=== PATIENT | male | born 1980 | race Caucasian/White ===

== ENCOUNTER 2019-03-15 09:57 | Emergency (ER) | payer BC ==
[2019-03-15] MEDS ORDERED: Sodium Chloride 0.9% 10 ML Syringe FLUSH PRN (10:36)
[2019-03-15] MEDS ORDERED: Ondansetron 4 MG/2 ML SDV IVPUSH ONE (10:36)
[2019-03-15] MEDS ORDERED: Ketorolac 30 MG/ML SDV IVPUSH ONE (10:37)
[2019-03-15] MEDS ORDERED: HYDROmorphone 0.5 MG/0.5 ML Syringe IVPUSH ONE ×2 (10:37→13:28)
[2019-03-15] MEDS ORDERED: Sodium Chloride 0.9% 1,000 ML IV SCH (10:45)
--- NOTE | 2019-03-15 11:43 | CT ---
CT abdomen and pelvis Technique: Multiple axial sections were obtained from above the dome of the diaphragm inferiorly through the pubic symphysis. Intravenous and oral contrast not utilized. Study has been performed as a ureteral stone protocol. Comparison: Prior CT abdomen and pelvis exam of 05/17/18. Findings: Ureters show no dilatation. No abnormal calcifications are seen along the course of the ureters. Small nonobstructing stone is noted within the mid to upper right kidney measuring about 2 mm. Small 1 mm stone is noted within the lower right kidney. No other abnormal calcifications are seen within either kidney. Visualized lung bases show nothing acute. Diffuse fatty infiltration is seen within the liver. Surgical clips are noted from prior cholecystectomy. Spleen appears within normal limits. Adrenal glands show no nodule. Pancreas shows no discrete abnormality. Aorta shows no aneurysm. No retroperitoneal adenopathy or mesenteric abnormalities are seen. Appendix is felt to be visualized and is normal in size. No pelvic mass or adenopathy is seen. No free fluid or inflammatory change is seen. No bowel dilatation is seen. Bone window settings were reviewed which show degenerative disc space narrowing within the lower thoracic spine and upper lumbar spine. Impression: 1. No ureteral dilatation or ureteral stone is seen. Two small nonobstructing calculi are seen within the right kidney. 2. Fatty infiltration within the liver. 3. Nothing acute is appreciated on noncontrast CT study of the abdomen and pelvis. Diagnostic code #2
--- NOTE | 2019-03-15 13:33 | EDM.PDOC ---
ED HPI GENERAL MEDICAL PROBLEM - General Chief Complaint: Abdominal Pain Stated Complaint: BACK PAIN/LEG PAIN/SIDE PAIN Time Seen by Provider: 03/15/19 10:07 Source of Information: Reports: Patient History Limitations: Reports: No Limitations - History of Present Illness INITIAL COMMENTS - FREE TEXT/NARRATIVE: The patient presents with bilateral leg cramps for about a week and right flank and right abdominal pain. The flank and abdominal pain started today. He has some nausea but not vomiting. He has no history of kidney stones. He has no fever, chills or cough. He has no gallbladder. He has no dysuria or hematuria. Onset: Gradual Duration: Hour(s): Location: Reports: Abdomen, Back Quality: Reports: Sharp Severity: Severe Improves with: Reports: None Worsens with: Reports: None Associated Symptoms: Reports: Nausea/Vomiting. Denies: Chest Pain, Cough, Fever /Chills, Headaches, Shortness of Breath Right Abdominal Pain Score (Numeric/FACES): 8 - Related Data Allergies Allergy/AdvReac Type Severity Reaction Status Date / Time morphine Allergy Hives Verified 03/15/19 10:10 Home Meds: Home Meds Canagliflozin [Invokana] 100 mg PO DAILY 05/17/18 [History] Dulaglutide [Trulicity] 1 dose SQ WEEKLY 05/17/18 [History] Omeprazole 20 mg PO DAILY 05/17/18 [History] Testosterone [Axiron] 200 mg IM WEEKLY 05/17/18 [History] Cyclobenzaprine [Flexeril] 10 mg PO TID PRN #20 tab 03/15/19 [Rx] traMADol [Ultram] 50 - 100 mg PO Q6H PRN #20 tab 03/15/19 [Rx] Past Medical History Cardiovascular History: Reports: High Cholesterol Other Cardiovascular History: January 11, 2016 had tachycardia that caused scarring on the heart. Respiratory History: Reports: None Gastrointestinal History: Reports: Inflammatory Bowel Disease Neurological History: Reports: None Psychiatric History: Reports: None Endocrine/Metabolic History: Reports: Diabetes, Type II Hematologic History: Reports: None Immunologic History: Reports: None Oncologic (Cancer) History: Reports: Other (See Below) Other Oncologic History: testicular Dermatologic History: Reports: None - Infectious Disease History Infectious Disease History: Reports: None - Past Surgical History Head Surgeries/Procedures: Reports: None HEENT Surgical History: Reports: LASIK GI Surgical History: Reports: Cholecystectomy, Hernia, Inguinal Other Male Surgeries/Procedures: Removal of bilateral epididimis in 2001, 2004 due to testicular cancer. Musculoskeletal Surgical History: Reports: Arthroscopic Knee Social & Family History - Tobacco Use Smoking Status *Q: Never Smoker - Caffeine Use Caffeine Use: Reports: None - Recreational Drug Use Recreational Drug Use: No - Living Situation & Occupation Living situation: Reports: Occupation: Employed ED ROS GENERAL - Review of Systems Review Of Systems: See Below Constitutional: Reports: No Symptoms HEENT: Reports: No Symptoms Respiratory: Reports: No Symptoms Cardiovascular: Reports: No Symptoms Endocrine: Reports: No Symptoms GI/Abdominal: Reports: Abdominal Pain, Nausea. Denies: Diarrhea, Vomiting : Reports: Flank Pain (Right) Musculoskeletal: Reports: Other (Bilateral leg cramps) ED EXAM, GI/ABD - Physical Exam Exam: See Below Exam Limited By: No Limitations General Appearance: Alert, No Apparent Distress Ears: Normal External Exam Nose: Normal Inspection Head: Atraumatic, Normocephalic Neck: Normal Inspection Respiratory/Chest: No Respiratory Distress, Lungs Clear, Normal Breath Sounds Cardiovascular: Regular Rate, Rhythm, No Edema, No Murmur GI/Abdominal Exam: Soft, Non-Tender, No Organomegaly, No Mass Back Exam: CVA Tenderness (R) Extremities: Normal Inspection Neurological: Alert, Oriented, No Motor/Sensory Deficits Course - Vital Signs Last Recorded V/S: Last Vital Signs Temp 97.6 F 03/15/19 10:07 Pulse 83 03/15/19 10:07 Resp 16 03/15/19 10:07 BP 142/100 H 03/15/19 10:07 Pulse Ox 99 03/15/19 10:07 - Orders/Labs/Meds Orders: Active Orders 24 hr Category Date Time Status Peripheral IV Care [RC] . DIRECTED Care 03/15/19 10:36 Active ED Antiemetic Medication Reflex [OM.PC] Stat Oth 03/15/19 10:36 Ordered Peripheral IV Insertion Adult [OM.PC] Stat Oth 03/15/19 10:36 Ordered Labs: Laboratory Tests 03/15/19 03/15/19 03/15/19 Range/Units 10:50 10:50 11:18 WBC 7.16 (4.23-9.07) K/mm3 RBC 6.15 H (4.63-6.08) M/mm3 Hgb 17.1 (13.7-17.5) gm/L Hct 50.1 (40.1-51.0) % MCV 81.5 (79.0-92.2) fl MCH 27.8 (25.7-32.2) pg MCHC 34.1 (32.2-35.5) g/dl RDW Std Deviation 40.4 (35.1-43.9) fL Plt Count 213 D (163-337) K/mm3 MPV 10.5 (9.4-12.3) fl Neut % (Auto) 55.4 (34.0-67.9) % Lymph % (Auto) 31.6 (21.8-53.1) % [place] % (Auto) 11.2 (5.3-12.2) % Eos % (Auto) 0.8 (0.8-7.0) Baso % (Auto) 0.6 (0.1-1.2) % Neut # (Auto) 3.97 (1.78-5.38) K/mm3 Lymph # (Auto) 2.26 (1.32-3.57) K/mm3 [place] # (Auto) 0.80 (0.30-0.82) K/mm3 Eos # (Auto) 0.06 (0.04-0.54) K/mm3 Baso # (Auto) 0.04 (0.01-0.08) K/mm3 Manual Slide Review Abnormal smear Sodium 136 (136-145) mEq/L Potassium 3.7 (3.5-5.1) mEq/L Chloride 99 (98-107) mEq/L Carbon Dioxide 26 (21-32) mEq/L Anion Gap 14.7 (5-15) BUN 8 (7-18) mg/dL Creatinine 1.1 (0.7-1.3) mg/dL Est Cr Clr Drug Dosing 94.02 mL/min Estimated GFR (MDRD) > 60 (>60) mL/min BUN/Creatinine Ratio 7.3 L (14-18) Glucose 243 H (74-106) mg/dL Calcium 8.8 (8.5-10.1) mg/dL Total Bilirubin 0.6 (0.2-1.0) mg/dL AST 118 H (15-37) U/L ALT 201 H (16-63) U/L Alkaline Phosphatase 101 (46-116) U/L Total Protein 7.7 (6.4-8.2) g/dl Albumin 3.4 (3.4-5.0) g/dl Globulin 4.3 gm/dL Albumin/Globulin Ratio 0.8 L (1-2) Lipase 140 (73-393) U/L Urine Color Yellow (Yellow) Urine Appearance Clear (Clear) Urine pH 6.5 (5.0-8.0) Ur Specific [place] 1.010 (1.005-1.030) Urine Protein Negative (Negative) Urine Glucose (UA) 2+ H (Negative) Urine Ketones Negative (Negative) Urine Occult Blood Negative (Negative) Urine Nitrite Negative (Negative) Urine Bilirubin Negative (Negative) Urine Urobilinogen 0.2 (0.2-1.0) Ur Leukocyte Esterase Negative (Negative) Urine RBC Not seen (0-5) /hpf Urine WBC Not seen (0-5) /hpf Ur Squamous Epith Cells 0-5 (0-5) /hpf Urine Bacteria Not seen (FEW) /hpf Urine Mucus Not seen (FEW) /hpf Meds: Medications Discontinued Medications Generic Name Dose Route Start Last Admin Trade Name Freq PRN Reason Stop Dose Admin Hydromorphone HCl 0.5 mg 03/15/19 10:37 03/15/19 10:53 Dilaudid IVPUSH 03/15/19 10:38 0.5 mg ONETIME ONE Administration Hydromorphone HCl 0.5 mg 03/15/19 13:28 03/15/19 13:44 Dilaudid IVPUSH 03/15/19 13:29 0.5 mg ONETIME ONE Administration Sodium Chloride 1,000 mls @ 125 mls/hr 03/15/19 10:45 03/15/19 10:51 Normal Saline IV 125 mls/hr ASDIRECTED CHAYO Administration Ketorolac Tromethamine 30 mg 03/15/19 10:37 03/15/19 10:52 Toradol IVPUSH 03/15/19 10:38 30 mg ONETIME ONE Administration Ondansetron HCl 4 mg 03/15/19 10:36 03/15/19 10:51 Zofran IVPUSH 03/15/19 10:37 4 mg ONETIME ONE Administration Sodium Chloride 10 ml 03/15/19 10:36 03/15/19 10:52 Saline Flush FLUSH 10 ml ASDIRECTED PRN Administration Keep Vein Open - Re-Assessments/Exams Free Text/Narrative Re-Assessment/Exam: 03/15/19 19:49 I ordered an IV NS at 125mL/hr, zofran 4mg IV, toradol 30mg IV, dilaudid IV, labs, UA and a CT of your abdomen and pelvis without IV and oral contrast to look for a kidney stone. 03/15/19 19:50 His CBC looks good. His glucose was elevated at 243. He does have type II diabetes. His AST was elevated at 118. His ALT was elevated at 201. His lipase was normal. His UA shows no UTI or blood. His CT shows no ureteral dilatation or ureteral stone is seen. Two small nonobstructing calculi are seen within the right kidney. Fatty infiltration within the liver. Nothing acute is appreciated on noncontrast CT study of the abdomen and pelvis. At this time I am not sure what caused his pain and his muscle cramps. I will get him on a muscle relaxer and something for pain and have him follow up with his doctor. Departure - Departure Time of Disposition: 13:30 Disposition: Home, Self-Care 01 Condition: Good Clinical Impression: Right flank pain Abdominal pain Qualifiers: Abdominal location: right lower quadrant Qualified Code(s): R10.31 - Right lower quadrant pain - Discharge Information *PRESCRIPTION DRUG MONITORING PROGRAM REVIEWED*: No *COPY OF PRESCRIPTION DRUG MONITORING REPORT IN PATIENT ANNMARIE: No Prescriptions: Cyclobenzaprine [Flexeril] 10 mg PO TID PRN #20 tab PRN Reason: Pain traMADol [Ultram] 50 - 100 mg PO Q6H PRN #20 tab PRN Reason: Pain Instructions: Abdominal Pain, Adult, Flank Pain, Adult, [id number] Referrals: Trish Mota MD [Primary Care Provider] - 1 Week Forms: ED Department Discharge Additional Instructions: Drink plenty of fluids. Take the tramadol for pain and the flexeril for cramps. Do not drive while taking either medications. Follow up with your doctor in 1 week. - My Orders Last 24 Hours: My Active Orders 03/15/19 10:36 Peripheral IV Care [RC] . DIRECTED ED Antiemetic Medication Reflex [OM.PC] Stat Peripheral IV Insertion Adult [OM.PC] Stat - Assessment/Plan Last 24 Hours: My Active Orders 03/15/19 10:36 Peripheral IV Care [RC] . DIRECTED ED Antiemetic Medication Reflex [OM.PC] Stat Peripheral IV Insertion Adult [OM.PC] Stat
== END 2019-03-15 13:54 | disposition home or self-care (01) ==
LOC: JD.ED 09:57
DX: R10.31 Right lower quadrant pain (principal); E11.9 Type 2 diabetes mellitus without complications; Z88.5 Allergy status to narcotic agent; Z90.49 Acquired absence of other specified parts of digestive tract
CPT/HCPCS: 36415; 74176; 80053; 81001; 83690; 85025; 96361; 96374; 96375; 96376; 99284; J1170; J1885; J2405; J7040

== ENCOUNTER 2020-04-15 07:05 | Day surgery (SDC) | payer SELFPAY ==
--- NOTE | 2020-04-14 13:01 | PCM.PREANE ---
Preanesthetic Assessment - Anesthesia/Transfusion/Family Hx Anesthesia History: Prior Anesthesia Without Reaction Family History of Anesthesia Reaction: No Transfusion History: No Prior Transfusion(s) Intubation History: Unknown - Review of Systems General: No Symptoms Pulmonary: No Symptoms Cardiovascular: No Symptoms (History of HTN) Gastrointestinal: No Symptoms (controlled GERD), Abdominal Pain (Patient c/o of abdominal bloating/full.), Decreased Appetite, Diarrhea Neurological: No Symptoms Other: Reports: None (History of testicular cancer), Diabetes (AM Blood Sugar:259 @ 259), Liver Problems (Fatty liver disease in the past.) - Physical Assessment NPO Status Date: 04/14/20 NPO Status Time: 22:00 Vital Signs: HR:92 B/P:136/96 Sat:97% Temp:97.1 Resp:14 Height: 1.78 m Weight: 92 kg ASA Class: 2 Mental Status: Alert & Oriented x3 Airway Class: Mallampati = 2 Dentition: Reports: Normal Dentition, [place](s), Implants, Caries Thyro-Mental Finger Breadths: 3 Mouth Opening Finger Breadths: 3 ROM/Head Extension: Full Lungs: Clear to Auscultation, Normal Respiratory Effort Cardiovascular: Regular Rate, Regular Rhythm, No Murmurs - Lab Values: All labs reviewed and noted and within acceptable ranges to proceed with scheduled procedure. - Allergies Allergies/Adverse Reactions: Allergies Allergy/AdvReac Type Severity Reaction Status Date / Time dulaglutide [From Trulicity] Allergy Hives Verified 04/14/20 14:17 morphine Allergy Hives Verified 04/14/20 14:17 simvastatin Allergy Muscle Verified 04/14/20 14:17 Aches wheat Allergy Diarrhea Verified 04/14/20 14:17 - Anesthesia Plan Pre-Op Medication Ordered: None - Acknowledgements Anesthesia Type Planned: MAC Pt an Appropriate Candidate for the Planned Anesthesia: Yes Alternatives and Risks of Anesthesia Discussed w Pt/Guardian: Yes Pt/Guardian Understands and Agrees with Anesthesia Plan: Yes PreAnesthesia Questionnaire Cardiovascular History: Reports: High Cholesterol Other Cardiovascular History: January 11, 2016 had tachycardia that caused scarring on the heart. Respiratory History: Reports: None Gastrointestinal History: Reports: Inflammatory Bowel Disease Neurological History: Reports: None Psychiatric History: Reports: None Endocrine/Metabolic History: Reports: Diabetes, Type II Hematologic History: Reports: None Immunologic History: Reports: None Oncologic (Cancer) History: Reports: Other (See Below) Other Oncologic History: testicular Dermatologic History: Reports: None - Infectious Disease History Infectious Disease History: Reports: None - Past Surgical History Head Surgeries/Procedures: Reports: None HEENT Surgical History: Reports: LASIK GI Surgical History: Reports: Cholecystectomy, Hernia, Inguinal Other Male Surgeries/Procedures: Removal of bilateral epididimis in 2001, 2004 due to testicular cancer. Musculoskeletal Surgical History: Reports: Arthroscopic Knee - HOME MEDS Home Medications: Home Meds Omeprazole 20 mg PO DAILY 05/17/18 [History] SitaGLIPtin [Januvia] 100 mg PO BID 04/14/20 [History] Testosterone Cypionate [Depo-Testosterone] 1 dose IM Q7D 04/14/20 [History] - CURRENT (IN HOUSE) MEDS Current Meds: Current Medications Lactated Ringer's (Ringers, Lactated) 1,000 mls @ 125 mls/hr IV ASDIRECTED CHAYO Stop: 04/15/20 23:00 Lidocaine/Sodium Bicarbonate (Buffered Lidocaine 1% In Ns 8.4%) 0.25 ml IDERM ONETIME PRN PRN Reason: Prior to IV Start Stop: 04/15/20 18:00 Sodium Chloride (Saline Flush) 10 ml FLUSH ASDIRECTED PRN PRN Reason: Keep Vein Open Stop: 04/15/20 18:00
[~2020-04-15 07:05] MED LIST: Lactated Ringers 1,000 ML IV SCH; Lidocaine 1%/Sod Bicarbonate in NS 8.4% 1 ML Syringe IDERM PRN; Sodium Chloride 0.9% 10 ML Syringe FLUSH PRN
[2020-04-15] MEDS ORDERED: Propofol 200 MG/20 ML SDV ONE (07:11)
[2020-04-15] MEDS ORDERED: Lidocaine 1% 2 ML SDV ONE (07:11)
[2020-04-15] MEDS ORDERED: fentaNYL 100 MCG/2 ML SDV ONE (07:11)
[2020-04-15] MEDS ORDERED: Ondansetron 4 MG/2 ML SDV IVPUSH PRN ×2 (07:55→07:57)
--- NOTE | 2020-04-15 08:20 | PCM48HPAN ---
Post Anesthesia Note - EVALUATION WITHIN 48HRS OF ANESTHETIC Vital Signs in Normal Range: Yes Patient Participated in Evaluation: Yes Respiratory Function Stable: Yes Airway Patent: Yes Cardiovascular Function Stable: Yes Hydration Status Stable: Yes Pain Control Satisfactory: Yes Nausea and Vomiting Control Satisfactory: Yes Mental Status Recovered: Yes Vital Signs: Last Vital Signs Temp 36.2 C 04/15/20 07:20 Pulse 92 04/15/20 07:20 Resp 14 04/15/20 07:20 BP 136/96 H 04/15/20 07:20 Pulse Ox 97 04/15/20 07:20
--- NOTE | 2020-04-15 09:40 | PCM.PRNOTE ---
- Free Text/Narrative Note: Date: 04/15/2020 Procedure: diagnostic esophagogastroduodenoscopy Indication: epigastric pain, bloating, nausea Endoscopist: Elijah Pedro MD Findings: retained solid food in stomach. 1 cm polypoid lesion at the pylorus. Otherwise normal findings. Detailed Report: The patient was taken to the endoscopy suite and placed in left lateral decubitus position. Time out was performed and monitored anesthesia care initiated. A bite block was placed. The endoscope was passed to the duodenum with ease. On the way, a moderate amount of solid food was noted in the stomach. The duodenum appeared normal. There was a polypoid lesion at the anterior superior aspect of the pyloric sphincter which was biopsied with forceps. This did not appear to be causing any gastric outlet obstruction. A sample of the antral mucosa was obtained to help rule out H pylori. No hiatal hernia was noted. The Z line appeared normal and no gross esophageal pathology was noted. The stomach was suctioned and the scope withdrawn. The patient tolerated the procedure well.
== END 2020-04-15 08:50 | disposition home or self-care (01) ==
LOC: JD.SDS 07:05
PROVIDERS: ATTEND Surgery
DX: K29.50 Unspecified chronic gastritis without bleeding (principal); K31.89 Other diseases of stomach and duodenum; T14.8XXA Other injury of unspecified body region, initial encounter; E78.00 Pure hypercholesterolemia, unspecified; K21.9 Gastro-esophageal reflux disease without esophagitis; E78.2 Mixed hyperlipidemia; E11.65 Type 2 diabetes mellitus with hyperglycemia; I10 Essential (primary) hypertension; Z88.8 Allergy status to other drugs, medicaments and biological substances; Z88.5 Allergy status to narcotic agent; Z79.899 Other long term (current) drug therapy; X58.XXXA Exposure to other specified factors, initial encounter
CPT/HCPCS: 43239; 82962; J2001; J2704; J3010; J7120; 00731

== ENCOUNTER 2021-03-07 07:00 | Day surgery (SDC) | payer MEDICAID ==
[2021-03-07] MEDS ORDERED: Famotidine 20 MG/2 ML SDV IVPUSH ONE (07:25)
[2021-03-07] MEDS ORDERED: HYDROmorphone 1 MG/ML Syringe IVPUSH ONE ×2 (07:25→08:33)
--- NOTE | 2021-03-07 07:31 | EDM.PDOC ---
ED HPI GENERAL MEDICAL PROBLEM - General Chief Complaint: Chest Pain Stated Complaint: [facility] Time Seen by Provider: 03/07/21 07:18 Source of Information: Reports: Patient, EMS, Family History Limitations: Reports: No Limitations - History of Present Illness INITIAL COMMENTS - FREE TEXT/NARRATIVE: The patient presents by [facility] ambulance for chest pain and epigastric pain. He said this started about 3am. He has no shortness of breath with it. He has a history of a "cardiac event" 5 years ago and needed to be hospitalized. He thinks it had something to do with his rate. He does not smoke. He has no history of hypertension. he has a history of hypercholesterolemia and diabetes. He was given aspirin, fentanyl and nitro by EMS. He did have nausea and vomiting. He has no fever, chills, cough, diarrhea or dysuria. Onset: Today Duration: Hour(s): (3am) Location: Reports: Chest, Abdomen Quality: Reports: Sharp Severity: Severe Improves with: Reports: None Worsens with: Reports: None Associated Symptoms: Reports: Chest Pain, Nausea/Vomiting. Denies: Cough Treatments DIRECTOR OF PSYCHIATRY: Reports: IV/IO, Other (see below) Other Treatments DIRECTOR OF PSYCHIATRY: 324 ASA, 1 spray nitro, 75 mcg fentanyl Epigastric Pain Score (Numeric/FACES): 10 - Related Data Allergies Allergy/AdvReac Type Severity Reaction Status Date / Time morphine Allergy Hives Verified 03/07/21 07:14 wheat Allergy Diarrhea Verified 03/07/21 07:14 simvastatin AdvReac Muscle Verified 03/07/21 09:48 Aches Home Meds: Home Meds Testosterone Cypionate [Depo-Testosterone] 1 dose IM Q7D 04/14/20 [History] Colestipol [Colestipol HCl] 1 gm PO DAILY 03/07/21 [History] Glimepiride 4 mg PO BID 03/07/21 [History] Rosuvastatin [Crestor] 10 mg PO DAILY 03/07/21 [History] sitaGLIPtin Phosphate [Januvia] 25 mg PO DAILY 03/07/21 [History] Past Medical History Cardiovascular History: Reports: High Cholesterol Other Cardiovascular History: January 11, 2016 had tachycardia that caused scarring on the heart. Respiratory History: Reports: None Gastrointestinal History: Reports: Inflammatory Bowel Disease Other Gastrointestinal History: RLQ pain, diarrhea, gerd Genitourinary History: Reports: Other (See Below) Other Genitourinary History: hypogonadism, testicular cancer [employer] History: Reports: None Neurological History: Reports: None Psychiatric History: Reports: None Endocrine/Metabolic History: Reports: Diabetes, Type II Hematologic History: Reports: None Immunologic History: Reports: None Oncologic (Cancer) History: Reports: Other (See Below) Other Oncologic History: testicular Dermatologic History: Reports: None - Infectious Disease History Infectious Disease History: Reports: None - Past Surgical History Head Surgeries/Procedures: Reports: None HEENT Surgical History: Reports: LASIK, Tonsillectomy Cardiovascular Surgical History: Reports: None Respiratory Surgical History: Reports: None GI Surgical History: Reports: Cholecystectomy, Colonoscopy, EGD, Hernia, Inguinal Other Male Surgeries/Procedures: Removal of bilateral epididimis in 2001, 2004 due to testicular cancer. Endocrine Surgical History: Reports: None Neurological Surgical History: Reports: None Musculoskeletal Surgical History: Reports: Arthroscopic Knee Other Musculoskeletal Surgeries/Procedures:: bilateral knee surgeries, 6 screws to right knee Dermatological Surgical History: Reports: None Social & Family History - Tobacco Use Tobacco Use Status *Q: Unknown Ever Used Tobacco - Caffeine Use Caffeine Use: Reports: None - Living Situation & Occupation Living situation: Reports: Occupation: Employed ED ROS GENERAL - Review of Systems Review Of Systems: See Below Constitutional: Reports: No Symptoms HEENT: Reports: No Symptoms Respiratory: Reports: No Symptoms Cardiovascular: Reports: Chest Pain Endocrine: Reports: No Symptoms GI/Abdominal: Reports: Abdominal Pain, Nausea, Vomiting : Reports: No Symptoms Musculoskeletal: Reports: No Symptoms ED EXAM, GENERAL - Physical Exam Exam: See Below Exam Limited By: No Limitations General Appearance: Alert, No Apparent Distress Ears: Normal External Exam Nose: Normal Inspection Head: Atraumatic, Normocephalic Neck: Normal Inspection Respiratory/Chest: No Respiratory Distress, Lungs Clear, Normal Breath Sounds Cardiovascular: Regular Rate, Rhythm, No Edema, No Murmur GI/Abdominal: Soft, No Organomegaly, No Mass, Tender (Moderate tenderness to the RUQ and epigastric areas) Back Exam: Normal Inspection Extremities: Normal Inspection #1 Interpretation EKG Date: 03/07/21 Time: 07:08 Rhythm: NSR Rate (Beats/Min): 94 [place]: Normal P-Wave: Present QRS: Normal ST-T: Elevated (Normal early repol) QT: Normal Course - Vital Signs Last Recorded V/S: Last Vital Signs Temp 97.4 F 03/07/21 07:06 Pulse 88 03/07/21 07:06 Resp 17 03/07/21 07:06 BP 132/75 03/07/21 07:06 Pulse Ox 95 03/07/21 07:06 - Orders/Labs/Meds Orders: Active Orders 24 hr Category Date Time Status EKG 12 Lead [EKG Documentation Completion] [RC] STAT Care 03/07/21 07:11 Active CORONAVIRUS COVID-19 MARQUEZ [MOLEC] Stat Lab 03/07/21 09:59 Ordered cefOXitin [Mefoxin in Dextrose,Iso-Osm 2 GM/50 ML] 2 gm Med 03/07/21 10:13 Ordered Premix Bag 1 bag IV ONETIME Medication Orders Cefoxitin Sodium 2 gm/ Premix 50 mls @ 100 mls/hr IV ONETIME ONE Stop: 03/07/21 10:42 Labs: Laboratory Tests 03/07/21 03/07/21 Range/Units 07:24 07:24 WBC 17.80 H (4.23-9.07) K/mm3 RBC 6.04 (4.63-6.08) M/mm3 Hgb 16.9 (13.7-17.5) gm/dl Hct 50.6 (40.1-51.0) % MCV 83.8 (79.0-92.2) fl MCH 28.0 (25.7-32.2) pg MCHC 33.4 (32.2-35.5) g/dl RDW Std Deviation 41.3 (35.1-43.9) fL Plt Count 243 (163-337) K/mm3 MPV 10.2 (9.4-12.3) fl Neut % (Auto) 84.6 H (34.0-67.9) % Lymph % (Auto) 7.6 L (21.8-53.1) % [place] % (Auto) 7.1 (5.3-12.2) % Eos % (Auto) 0.2 L (0.8-7.0) Baso % (Auto) 0.2 (0.1-1.2) % Neut # (Auto) 15.07 H (1.78-5.38) K/mm3 Lymph # (Auto) 1.36 (1.32-3.57) K/mm3 [place] # (Auto) 1.26 H (0.30-0.82) K/mm3 Eos # (Auto) 0.03 L (0.04-0.54) K/mm3 Baso # (Auto) 0.03 (0.01-0.08) K/mm3 Manual Slide Review Normal smear Sodium 137 (136-145) mEq/L Potassium 4.9 (3.5-5.1) mEq/L Chloride 103 (98-107) mEq/L Carbon Dioxide 25 (21-32) mEq/L Anion Gap 13.9 (5-15) BUN 14 (7-18) mg/dL Creatinine 1.1 (0.7-1.3) mg/dL Est Cr Clr Drug Dosing 92.17 mL/min Estimated GFR (MDRD) > 60 (>60) mL/min BUN/Creatinine Ratio 12.7 L (14-18) Glucose 156 H (70-99) mg/dL Calcium 8.0 L (8.5-10.1) mg/dL Total Bilirubin 0.4 (0.2-1.0) mg/dL AST 23 (15-37) U/L ALT 29 (16-63) U/L Alkaline Phosphatase 47 (46-116) U/L Troponin I < 0.017 (0.00-0.056) ng/mL Total Protein 7.3 (6.4-8.2) g/dl Albumin 3.5 (3.4-5.0) g/dl Globulin 3.8 gm/dL Albumin/Globulin Ratio 0.9 L (1-2) Meds: Medications Generic Name Dose Route Start Last Admin Trade Name Freq PRN Reason Stop Dose Admin Cefoxitin Sodium 2 gm/ Premix 50 mls @ 100 mls/hr 03/07/21 10:13 IV 03/07/21 10:42 ONETIME ONE Discontinued Medications Generic Name Dose Route Start Last Admin Trade Name Freq PRN Reason Stop Dose Admin Diatrizoate Meglum/Diatrizoate Sod 90 ml 03/07/21 09:41 03/07/21 09:44 Diatrizoate Meglumine/Diatrizoate Sodium 37% 120 Ml Bottle PO 03/07/21 09:42 90 ml ONETIME ONE Administration Famotidine 20 mg 03/07/21 07:25 03/07/21 07:32 Famotidine 20 Mg/2 Ml Sdv IVPUSH 03/07/21 07:26 20 mg ONETIME ONE Administration Hydromorphone HCl 1 mg 03/07/21 07:25 03/07/21 07:32 Hydromorphone 1 Mg/Ml Syringe IVPUSH 03/07/21 07:26 1 mg ONETIME ONE Administration Hydromorphone HCl 1 mg 03/07/21 08:33 03/07/21 08:42 Hydromorphone 1 Mg/Ml Syringe IVPUSH 03/07/21 08:34 1 mg ONETIME ONE Administration Iopamidol 100 ml 03/07/21 09:41 03/07/21 09:44 Iopamidol 612 Mg/Ml 100 Ml Bottle IVPUSH 03/07/21 09:42 100 ml ONETIME ONE Administration - Re-Assessments/Exams Free Text/Narrative Re-Assessment/Exam: 03/07/21 07:32 I ordered an IV saline lock, EKG, CXR, labs, dilaudid 1mg IV, pepcid 20mg IV and a CT of his abdomen and pelvis with IV and oral contrast. 03/07/21 10:14 His EKG shows a NSR with no acute changes. His CXR looks good. His WBC was elevated at 17.8. His glucose was elevated at 156. His troponin is negative. His CT shows findings compatible with appendicitis. Other findings believed to be incidental. I called Dr Bach and he will come see the patient. He wanted some cefoxitin 2 grams. I have ordered that. Departure - Departure Time of Disposition: 10:20 Disposition: DC/Tfer to [facility] Reason for Transfer *Q: Other Condition: Fair Clinical Impression: Acute appendicitis Qualifiers: Acute appendicitis type: other Qualified Code(s): K35.890 - Other acute appendicitis without perforation or gangrene; K35.89 - Other acute appendicitis Referrals: Maryanne Naranjo PA-C [Primary Care Provider] - Forms: ED Department Discharge Sepsis Event Note (ED) - Evaluation Sepsis Screening Result: No Definite Risk - Focused Exam Vital Signs: Vital Signs Temp Pulse Resp BP Pulse Ox 03/07/21 07:06 97.4 F 88 17 132/75 95 - My Orders Last 24 Hours: My Active Orders 03/07/21 07:11 EKG 12 Lead [EKG Documentation Completion] [RC] STAT 03/07/21 09:59 CORONAVIRUS COVID-19 [facility]QUEZ [MOLEC] Stat 03/07/21 10:13 cefOXitin [Mefoxin in Dextrose,Iso-Osm 2 GM/50 ML] 2 gm Premix Bag 1 bag IV ONETIME - Assessment/Plan Last 24 Hours: My Active Orders 03/07/21 07:11 EKG 12 Lead [EKG Documentation Completion] [RC] STAT 03/07/21 09:59 CORONAVIRUS COVID-19 MARQUEZ [MOLEC] Stat 03/07/21 10:13 cefOXitin [Mefoxin in Dextrose,Iso-Osm 2 GM/50 ML] 2 gm Premix Bag 1 bag IV ONETIME
--- NOTE | 2021-03-07 09:13 | CR ---
Chest: Portable view of the chest was obtained. Comparison: Prior chest x-ray of 03/11/11 Heart size is normal. Mild tortuosity of the thoracic aorta is seen. Lungs are clear with no acute parenchymal change. No acute osseous abnormality is appreciated. Impression: 1. Nothing acute is appreciated on portable chest x-ray. Diagnostic code #2
[2021-03-07] MEDS ORDERED: Diatrizoate Meglumine/Diatrizoate Sodium 37% 120 ML Bottle PO ONE (09:41)
[2021-03-07] MEDS ORDERED: Iopamidol 612 MG/ML 100 ML Bottle IVPUSH ONE (09:41)
[2021-03-07] MEDS ORDERED: Sodium Chloride 0.9% 100 ML IV ONE (09:41)
--- NOTE | 2021-03-07 10:01 | CT ---
CT abdomen and pelvis Technique: Multiple axial sections were obtained from above the dome of the diaphragm inferiorly through the pubic symphysis. Intravenous contrast was utilized. Oral contrast was given which remains within the stomach. Reconstructed coronal and sagittal images were obtained. Comparson: Prior CT abdomen and pelvis dated 04/03/20 Findings: Appendix is dilated and shows mild inflammatory change compatible with early appendicitis. Visualized lung bases show nothing acute. Liver contains no focal abnormality. Spleen size is normal. Adrenal glands show no nodule. Pancreas is within normal limits. Kidneys show symmetric contrast enhancement. Possible small nonobstructing calculus is noted within the upper right kidney. Surgical clips are seen from prior cholecystectomy. Abdominal aorta shows no aneurysm. No retroperitoneal adenopathy or mesenteric abnormalities are seen. No pelvic mass or adenopathy is seen. Delayed images shows contrast within the distal ureters and bladder. Bone window settings show mild scattered degenerative change within the spine. Impression: 1. Findings compatible with appendicitis. 2. Other findings believed to be incidental as noted above. Diagnostic code #5
[2021-03-07] MEDS ORDERED: cefOXitin 2 GM in Premix Bag 1 BAG IV ONE (10:13)
[2021-03-07] MEDS ORDERED: Ondansetron 4 MG/2 ML SDV IVPUSH ONE (11:46)
[2021-03-07] MEDS ORDERED: HYDROmorphone 0.5 MG/0.5 ML Syringe IVPUSH ONE (11:47)
--- NOTE | 2021-03-07 13:05 | PCM.CONS ---
H&P History of Present Illness - General Date of Service: 03/07/21 Source of Information: Patient History Limitations: Reports: No Limitations - History of Present Illness Initial Comments - Free Text/Narative: The patient started having severe abdominal cramps this AM around 3 am. He initially though this was due to reflux so he took pepto-bismal but the pain did not improve. Eventually he presented to the ER. WBC was 17, CT scan revealed acute appendicitis. I was asked to see him. Onset of Symptoms: Reports: Today Duration of Symptoms: Reports: Hour(s): (10) Location: Reports: Abdomen Severity: Severe Improves with: Reports: None Worsens with: Reports: None Associated Symptoms: Reports: No Other Symptoms Epigastric Pain Score (Numeric/FACES): 10 - Related Data Allergies/Adverse Reactions: Allergies Allergy/AdvReac Type Severity Reaction Status Date / Time morphine Allergy Hives Verified 03/07/21 07:14 wheat Allergy Diarrhea Verified 03/07/21 07:14 simvastatin AdvReac Muscle Verified 03/07/21 09:48 Aches Home Medications: Home Meds Testosterone Cypionate [Depo-Testosterone] 1 dose IM Q7D 04/14/20 [History] Colestipol [Colestipol HCl] 1 gm PO DAILY 03/07/21 [History] Glimepiride 4 mg PO BID 03/07/21 [History] Rosuvastatin [Crestor] 10 mg PO DAILY 03/07/21 [History] sitaGLIPtin Phosphate [Januvia] 25 mg PO DAILY 03/07/21 [History] Past Medical History Cardiovascular History: Reports: High Cholesterol Other Cardiovascular History: January 11, 2016 had tachycardia that caused scarring on the heart. Respiratory History: Reports: None Gastrointestinal History: Reports: Inflammatory Bowel Disease Other Gastrointestinal History: RLQ pain, diarrhea, gerd Genitourinary History: Reports: Other (See Below) Other Genitourinary History: hypogonadism, testicular cancer MANAGER MEDIA History: Reports: None Neurological History: Reports: None Psychiatric History: Reports: None Endocrine/Metabolic History: Reports: Diabetes, Type II Hematologic History: Reports: None Immunologic History: Reports: None Oncologic (Cancer) History: Reports: Other (See Below) Other Oncologic History: testicular Dermatologic History: Reports: None - Infectious Disease History Infectious Disease History: Reports: None - Past Surgical History Head Surgeries/Procedures: Reports: None HEENT Surgical History: Reports: LASIK, Tonsillectomy Cardiovascular Surgical History: Reports: None Respiratory Surgical History: Reports: None GI Surgical History: Reports: Cholecystectomy, Colonoscopy, EGD, Hernia, Inguinal Other Male Surgeries/Procedures: Removal of bilateral epididimis in 2001, 2004 due to testicular cancer. Endocrine Surgical History: Reports: None Neurological Surgical History: Reports: None Musculoskeletal Surgical History: Reports: Arthroscopic Knee Other Musculoskeletal Surgeries/Procedures:: bilateral knee surgeries, 6 screws to right knee Dermatological Surgical History: Reports: None Social & Family History - Tobacco Use Tobacco Use Status *Q: Unknown Ever Used Tobacco - Caffeine Use Caffeine Use: Reports: None - Living Situation & Occupation Living situation: Reports: Occupation: Employed H&P Review of Systems - Review of Systems: Review Of Systems: See Below General: Reports: No Symptoms HEENT: Reports: No Symptoms Pulmonary: Reports: No Symptoms Cardiovascular: Reports: No Symptoms Gastrointestinal: Reports: Abdominal Pain Genitourinary: Reports: No Symptoms Musculoskeletal: Reports: No Symptoms Skin: Reports: No Symptoms Psychiatric: Reports: No Symptoms Neurological: Reports: No Symptoms Exam - Exam Exam: See Below - Vital Signs Vital Signs: Last Vital Signs Temp 97.4 F 03/07/21 07:06 Pulse 88 03/07/21 07:06 Resp 17 03/07/21 07:06 BP 132/75 03/07/21 07:06 Pulse Ox 95 03/07/21 07:06 Weight: 97.522 kg - Exam General: Alert, Oriented, Cooperative Lungs: Clear to Auscultation, Normal Respiratory Effort Cardiovascular: Regular Rate, Regular Rhythm, Normal S1, Normal S2 GI/Abdominal Exam: Soft, No Distention, Tender (RLQ and periumbilical) - Patient Data Lab Results Last 24 hrs: Laboratory Results - last 24 hr 03/07/21 03/07/21 03/07/21 Range/Units 07:24 07:24 10:30 WBC 17.80 H (4.23-9.07) K/mm3 RBC 6.04 (4.63-6.08) M/mm3 Hgb 16.9 (13.7-17.5) gm/dl Hct 50.6 (40.1-51.0) % MCV 83.8 (79.0-92.2) fl MCH 28.0 (25.7-32.2) pg MCHC 33.4 (32.2-35.5) g/dl RDW Std Deviation 41.3 (35.1-43.9) fL Plt Count 243 (163-337) K/mm3 MPV 10.2 (9.4-12.3) fl Neut % (Auto) 84.6 H (34.0-67.9) % Lymph % (Auto) 7.6 L (21.8-53.1) % [place] % (Auto) 7.1 (5.3-12.2) % Eos % (Auto) 0.2 L (0.8-7.0) Baso % (Auto) 0.2 (0.1-1.2) % Neut # (Auto) 15.07 H (1.78-5.38) K/mm3 Lymph # (Auto) 1.36 (1.32-3.57) K/mm3 [place] # (Auto) 1.26 H (0.30-0.82) K/mm3 Eos # (Auto) 0.03 L (0.04-0.54) K/mm3 Baso # (Auto) 0.03 (0.01-0.08) K/mm3 Manual Slide Review Normal smear Sodium 137 (136-145) mEq/L Potassium 4.9 (3.5-5.1) mEq/L Chloride 103 (98-107) mEq/L Carbon Dioxide 25 (21-32) mEq/L Anion Gap 13.9 (5-15) BUN 14 (7-18) mg/dL Creatinine 1.1 (0.7-1.3) mg/dL Est Cr Clr Drug Dosing 92.17 mL/min Estimated GFR (MDRD) > 60 (>60) mL/min BUN/Creatinine Ratio 12.7 L (14-18) Glucose 156 H (70-99) mg/dL Calcium 8.0 L (8.5-10.1) mg/dL Total Bilirubin 0.4 (0.2-1.0) mg/dL AST 23 (15-37) U/L ALT 29 (16-63) U/L Alkaline Phosphatase 47 (46-116) U/L Troponin I < 0.017 (0.00-0.056) ng/mL Total Protein 7.3 (6.4-8.2) g/dl Albumin 3.5 (3.4-5.0) g/dl Globulin 3.8 gm/dL Albumin/Globulin Ratio 0.9 L (1-2) SARS-CoV-2 RNA (MARQUEZ) Negative (NEGATIVE) Result Diagrams: 03/07/21 07:24 03/07/21 07:24 Sepsis Event Note - Evaluation Sepsis Screening Result: No Definite Risk - Focused Exam Vital Signs: Vital Signs Temp Pulse Resp BP Pulse Ox 03/07/21 07:06 97.4 F 88 17 132/75 95 Consult PN Assessment/Plan Procedures: Procedures ASSAY OF AMYLASE (04/03/20) ASSAY OF FREE TESTOSTERONE (09/02/17) ASSAY OF FREE THYROXINE (09/02/17) ASSAY OF LACTIC ACID (05/17/18) ASSAY OF LIPASE (04/03/20) ASSAY OF TOTAL TESTOSTERONE (09/02/17) ASSAY THYROID STIM HORMONE (09/02/17) ASSAY TRIIODOTHYRONINE (T3) (01/15/16) BL SMEAR W/DIFF WBC COUNT (05/17/18) C-REACTIVE PROTEIN (04/03/20) CARDIOVASCULAR STRESS TEST (01/15/16) COMPLETE CBC AUTOMATED (05/17/18) COMPLETE CBC W/AUTO DIFF WBC (04/03/20) COMPREHEN METABOLIC PANEL (04/03/20) CORTISOL FREE (04/06/20) CT ABD & PELV W/CONTRAST (04/03/20) CT ABD & PELVIS W/O CONTRAST (03/15/19) ECG/MONITORING AND ANALYSIS (03/18/15) EGD BIOPSY SINGLE/MULTIPLE (04/15/20) EMERGENCY DEPT VISIT (03/15/19) GASTRIC EMPTYING IMAG STUDY (04/14/20) GLUCOSE BLOOD TEST (04/15/20) GLYCOSYLATED HEMOGLOBIN TEST (09/02/17) HT MUSCLE IMAGE SPECT MULT (01/15/16) HYDRATE IV INFUSION ADD-ON (03/15/19) LIPID PANEL (09/02/17) PROTHROMBIN TIME (04/04/20) RBC SED RATE AUTOMATED (04/03/20) REMOTE 30 DAY ECG REV/REPORT (03/18/15) ROUTINE VENIPUNCTURE (04/04/20) SARS-COV-2 COVID-19 AMP PRB (04/11/20) THER/PROPH/DIAG INJ IV PUSH (03/15/19) THROMBOPLASTIN TIME PARTIAL (04/04/20) TTE W/DOPPLER COMPLETE (01/29/16) TX/PRO/DX INJ NEW DRUG ADDON (03/15/19) TX/PRO/DX INJ SAME DRUG RECOVERY COACH (03/15/19) URINALYSIS AUTO W/O SCOPE (04/03/20) URINALYSIS AUTO W/SCOPE (03/15/19) Problem List Initiated/Reviewed/Updated: No Plan: Patient has acute appendicitis. I discussed with him options including antibiotics vs surgery. He would like to proceed with surgery. We discussed risks, and benefits of surgical treatment. Risks discussed include bleeding, infection both deep and superficial, injury to adjacent structures, possibility of converting to open. patient verbalized understanding and informed consent was obtained.
[2021-03-07] MEDS: Bupivacaine 0.5%/EPINEPHrine 1:200,000 50 ML MDV ONE ×2 (13:45→14:32)
--- NOTE | 2021-03-07 13:47 | PCM.PREANE ---
Preanesthetic Assessment - Procedure Proposed Procedure: Laparoscopic appendectomy - Anesthesia/Transfusion/Family Hx Anesthesia History: Prior Anesthesia Without Reaction Transfusion History: No Prior Transfusion(s) Intubation History: Unknown - Review of Systems General: No Symptoms Pulmonary: No Symptoms Cardiovascular: No Symptoms Gastrointestinal: No Symptoms Neurological: No Symptoms Other: Reports: None - Physical Assessment NPO Status Date: 03/07/21 NPO Status Time: 01:30 Vital Signs: Last Vital Signs Temp 97.4 F 03/07/21 07:06 Pulse 88 03/07/21 07:06 Resp 17 03/07/21 07:06 BP 132/75 03/07/21 07:06 Pulse Ox 95 03/07/21 07:06 Height: 1.78 m Weight: 97.522 kg ASA Class: 2E Mental Status: Alert & Oriented x3 Airway Class: Mallampati = 3 Dentition: Reports: Amory(s), Bridge, Missing Tooth/Teeth Thyro-Mental Finger Breadths: 3 Mouth Opening Finger Breadths: 3 ROM/Head Extension: Full Lungs: Clear to Auscultation, Normal Respiratory Effort Cardiovascular: Regular Rate, Regular Rhythm - Lab Values: Laboratory Last Values WBC 17.80 K/mm3 (4.23-9.07) H 03/07/21 07:24 RBC 6.04 M/mm3 (4.63-6.08) 03/07/21 07:24 Hgb 16.9 gm/dl (13.7-17.5) 03/07/21 07:24 Hct 50.6 % (40.1-51.0) 03/07/21 07:24 MCV 83.8 fl (79.0-92.2) 03/07/21 07:24 MCH 28.0 pg (25.7-32.2) 03/07/21 07:24 MCHC 33.4 g/dl (32.2-35.5) 03/07/21 07:24 RDW Std Deviation 41.3 fL (35.1-43.9) 03/07/21 07:24 Plt Count 243 K/mm3 (163-337) 03/07/21 07:24 MPV 10.2 fl (9.4-12.3) 03/07/21 07:24 Neut % (Auto) 84.6 % (34.0-67.9) H 03/07/21 07:24 Lymph % (Auto) 7.6 % (21.8-53.1) L 03/07/21 07:24 Winkler % (Auto) 7.1 % (5.3-12.2) 03/07/21 07:24 Eos % (Auto) 0.2 (0.8-7.0) L 03/07/21 07:24 Baso % (Auto) 0.2 % (0.1-1.2) 03/07/21 07:24 Neut # (Auto) 15.07 K/mm3 (1.78-5.38) H 03/07/21 07:24 Lymph # (Auto) 1.36 K/mm3 (1.32-3.57) 03/07/21 07:24 Winkler # (Auto) 1.26 K/mm3 (0.30-0.82) H 03/07/21 07:24 Eos # (Auto) 0.03 K/mm3 (0.04-0.54) L 03/07/21 07:24 Baso # (Auto) 0.03 K/mm3 (0.01-0.08) 03/07/21 07:24 Manual Slide Review Normal smear 03/07/21 07:24 Sodium 137 mEq/L (136-145) 03/07/21 07:24 Potassium 4.9 mEq/L (3.5-5.1) 03/07/21 07:24 Chloride 103 mEq/L (98-107) 03/07/21 07:24 Carbon Dioxide 25 mEq/L (21-32) 03/07/21 07:24 Anion Gap 13.9 (5-15) 03/07/21 07:24 BUN 14 mg/dL (7-18) 03/07/21 07:24 Creatinine 1.1 mg/dL (0.7-1.3) 03/07/21 07:24 Est Cr Clr Drug Dosing 92.17 mL/min 03/07/21 07:24 Estimated GFR (MDRD) > 60 mL/min (>60) 03/07/21 07:24 BUN/Creatinine Ratio 12.7 (14-18) L 03/07/21 07:24 Glucose 156 mg/dL (70-99) H 03/07/21 07:24 Calcium 8.0 mg/dL (8.5-10.1) L 03/07/21 07:24 Total Bilirubin 0.4 mg/dL (0.2-1.0) 03/07/21 07:24 AST 23 U/L (15-37) 03/07/21 07:24 ALT 29 U/L (16-63) 03/07/21 07:24 Alkaline Phosphatase 47 U/L (46-116) 03/07/21 07:24 Troponin I < 0.017 ng/mL (0.00-0.056) 03/07/21 07:24 Total Protein 7.3 g/dl (6.4-8.2) 03/07/21 07:24 Albumin 3.5 g/dl (3.4-5.0) 03/07/21 07:24 Globulin 3.8 gm/dL 03/07/21 07:24 Albumin/Globulin Ratio 0.9 (1-2) L 03/07/21 07:24 SARS-CoV-2 RNA (MARQUEZ) Negative (NEGATIVE) 03/07/21 10:30 - Allergies Allergies/Adverse Reactions: Allergies Allergy/AdvReac Type Severity Reaction Status Date / Time morphine Allergy Hives Verified 03/07/21 07:14 wheat Allergy Diarrhea Verified 03/07/21 07:14 simvastatin AdvReac Muscle Verified 03/07/21 09:48 Aches - Acknowledgements Anesthesia Type Planned: General Anesthesia Pt an Appropriate Candidate for the Planned Anesthesia: Yes Alternatives and Risks of Anesthesia Discussed w Pt/Guardian: Yes Pt/Guardian Understands and Agrees with Anesthesia Plan: Yes PreAnesthesia Questionnaire Cardiovascular History: Reports: High Cholesterol Other Cardiovascular History: January 11, 2016 had tachycardia that caused scarring on the heart. Respiratory History: Reports: None Gastrointestinal History: Reports: Inflammatory Bowel Disease Other Gastrointestinal History: RLQ pain, diarrhea, gerd Genitourinary History: Reports: Other (See Below) Other Genitourinary History: hypogonadism, testicular cancer [employer] History: Reports: None Neurological History: Reports: None Psychiatric History: Reports: None Endocrine/Metabolic History: Reports: Diabetes, Type II Hematologic History: Reports: None Immunologic History: Reports: None Oncologic (Cancer) History: Reports: Other (See Below) Other Oncologic History: testicular Dermatologic History: Reports: None - Infectious Disease History Infectious Disease History: Reports: None - Past Surgical History Head Surgeries/Procedures: Reports: None HEENT Surgical History: Reports: LASIK, Tonsillectomy Cardiovascular Surgical History: Reports: None Respiratory Surgical History: Reports: None GI Surgical History: Reports: Cholecystectomy, Colonoscopy, EGD, Hernia, Inguinal Other Male Surgeries/Procedures: Removal of bilateral epididimis in 2001, 2004 due to testicular cancer. Endocrine Surgical History: Reports: None Neurological Surgical History: Reports: None Musculoskeletal Surgical History: Reports: Arthroscopic Knee Other Musculoskeletal Surgeries/Procedures:: bilateral knee surgeries, 6 screws to right knee Dermatological Surgical History: Reports: None - SUBSTANCE USE Tobacco Use Status *Q: Unknown Ever Used Tobacco - HOME MEDS Home Medications: Home Meds Testosterone Cypionate [Depo-Testosterone] 1 dose IM Q7D 04/14/20 [History] Colestipol [Colestipol HCl] 1 gm PO DAILY 03/07/21 [History] Glimepiride 4 mg PO BID 03/07/21 [History] Rosuvastatin [Crestor] 10 mg PO DAILY 03/07/21 [History] sitaGLIPtin Phosphate [Januvia] 25 mg PO DAILY 03/07/21 [History] - CURRENT (IN HOUSE) MEDS Current Meds: Current Medications Discontinued Medications Bupivacaine HCl/Epinephrine Bitart (Bupivacaine 0.5%/Epinephrine 1:200,000 50 Ml Mdv) Confirm Administered Dose 50 ml .ROUTE .STK-MED ONE Stop: 03/07/21 13:20 Diatrizoate Meglum/Diatrizoate Sod (Diatrizoate Meglumine/Diatrizoate Sodium 37% 120 Ml Bottle) 90 ml PO ONETIME ONE Stop: 03/07/21 09:42 Last Admin: 03/07/21 09:44 Dose: 90 ml Documented by: Famotidine (Famotidine 20 Mg/2 Ml Sdv) 20 mg IVPUSH ONETIME ONE Stop: 03/07/21 07:26 Last Admin: 03/07/21 07:32 Dose: 20 mg Documented by: Hydromorphone HCl (Hydromorphone 1 Mg/Ml Syringe) 1 mg IVPUSH ONETIME ONE Stop: 03/07/21 07:26 Last Admin: 03/07/21 07:32 Dose: 1 mg Documented by: Hydromorphone HCl (Hydromorphone 1 Mg/Ml Syringe) 1 mg IVPUSH ONETIME ONE Stop: 03/07/21 08:34 Last Admin: 03/07/21 08:42 Dose: 1 mg Documented by: Hydromorphone HCl (Hydromorphone 0.5 Mg/0.5 Ml Syringe) 0.5 mg IVPUSH ONETIME ONE Stop: 03/07/21 11:48 Last Admin: 03/07/21 11:52 Dose: 0.5 mg Documented by: Cefoxitin Sodium 2 gm/ Premix 50 mls @ 100 mls/hr IV ONETIME ONE Stop: 03/07/21 10:42 Last Admin: 03/07/21 10:21 Dose: 100 mls/hr Documented by: Iopamidol (Iopamidol 612 Mg/Ml 100 Ml Bottle) 100 ml IVPUSH ONETIME ONE Stop: 03/07/21 09:42 Last Admin: 03/07/21 09:44 Dose: 100 ml Documented by: Ondansetron HCl (Ondansetron 4 Mg/2 Ml Sdv) 4 mg IVPUSH ONETIME ONE Stop: 03/07/21 11:47 Last Admin: 03/07/21 11:52 Dose: 4 mg Documented by:
[2021-03-07] MEDS ORDERED: Propofol 200 MG/20 ML SDV ONE (13:52)
[2021-03-07] MEDS ORDERED: HYDROmorphone 0.5 MG/0.5 ML Syringe ONE (13:52)
[2021-03-07] MEDS ORDERED: fentaNYL 250 MCG/5 ML SDV ONE (13:53)
[2021-03-07] MEDS ORDERED: Midazolam 1 MG/ML 2 ML SDV ONE (13:53)
[2021-03-07] MEDS ORDERED: Succinylcholine/Sod PF 100 MG/5 ML SYRINGE IV ONE (13:59)
[2021-03-07] MEDS ORDERED: Lactated Ringers 2,000 ML ONE (14:25)
[2021-03-07] MEDS ORDERED: HYDROmorphone 0.5 MG/0.5 ML Syringe IVPUSH PRN (14:38)
[2021-03-07] MEDS ORDERED: fentaNYL 100 MCG/2 ML SDV IVPUSH PRN (14:38)
[2021-03-07] MEDS ORDERED: Ketorolac 30 MG/ML SDV ONE (14:52)
[2021-03-07] MEDS ORDERED: Ondansetron 4 MG/2 ML SDV ONE (14:52)
--- NOTE | 2021-03-07 15:40 | PCM.POSTAN ---
POST ANESTHESIA ASSESSMENT - MENTAL STATUS Mental Status: Somnolent - VITAL SIGNS Vital Signs: Last Vital Signs Temp 99.0 F 03/07/21 15:32 Pulse 92 03/07/21 15:32 Resp 14 03/07/21 15:32 BP 128/76 03/07/21 15:32 Pulse Ox 97 03/07/21 15:32 - RESPIRATORY Respiratory Status: Respiratory Rate WNL, Airway Patent (oral a/w #100), O2 Saturation Stable, Supplemental Oxygen - CARDIOVASCULAR CV Status: Pulse Rate WNL, Blood Pressure Stable - GASTROINTESTINAL GI Status: No Symptoms - PAIN Pain Score: 0 - POST OP HYDRATION Hydration Status: Adequate & Stable
--- NOTE | 2021-03-07 16:14 | OR ---
DATE OF OPERATION: 03/07/2021 SURGEON: Jennifer Bach MD PREOPERATIVE DIAGNOSIS: Acute appendicitis. POSTOPERATIVE DIAGNOSIS: Acute appendicitis. OPERATION PERFORMED: Laparoscopic appendectomy. ESTIMATED BLOOD LOSS: 5 mL. ANESTHESIA: General endotracheal plus local anesthetic consisting of 1% lidocaine, total 40 mL. COMPLICATIONS: None. INDICATION AND CONSENT: Mr. Batres is a 40-year-old male who started having abdominal pain yesterday. Pain became worse. The patient presented to the emergency department. CT scan revealed acute appendicitis. White count was 17. I discussed with the patient options including antibiotics management versus surgery. The patient wanted to proceed with surgery. We discussed risks, benefits, and alternatives, and informed consent was obtained. DESCRIPTION OF PROCEDURE: The patient was taken to the operating room, placed in supine position. General endotracheal anesthesia was induced. Preop antibiotics had already been given, which was cefoxitin. Then, time-out was performed. Then, abdomen was clipped of hair and prepped and draped in the usual sterile fashion. We began the procedure by injecting local anesthetic in the infraumbilical position, making an incision at this site, elevating the umbilical stalk and then introducing Veress needle into the abdomen, then insufflated the abdomen to 15 mmHg. A 5 mm scope with a 12 mm Optiview trocar were placed. There were no signs of injury to the abdominal inspection. Two additional 5 mm trocars were placed, one in the suprapubic area and other one in the left lower quadrant. The patient was then placed in the Trendelenburg and in left-sided now, began exploring the abdomen and we were able to find the retrocecal appendix in the right lower quadrant. This was elevated with a grasper. Using [place] LigaSure the mesoappendix was taken. There were no signs of bleeding and then using a white load Endo-ANDREA stapler, the appendix was divided at its base. The entire appendix was inflamed except at the base. Once the appendix was divided, was placed in the EndoCatch bag. Bleeding was minimal. We inspected the abdomen. There were no other abnormalities. The appendix removed through the infraumbilical position. Then, the abdomen was re-insufflated. The fascia at the infraumbilical incision site was closed with 0 Vicryl stitches using Dean- Shahriar device. Then, at this point, the abdomen was desufflated. All three incisions were closed at skin level with 4-0 Monocryl. This marked the end of the procedure. All instrument, sharps, and sponges were counted and found to be correct. The patient will be awakened and taken to recovery area. MMODAL /[id number] MTDWong
--- NOTE | 2021-03-08 10:23 | PCM48HPAN ---
Post Anesthesia Note - EVALUATION WITHIN 48HRS OF ANESTHETIC Vital Signs in Normal Range: Yes Patient Participated in Evaluation: Yes Respiratory Function Stable: Yes Airway Patent: Yes Cardiovascular Function Stable: Yes Hydration Status Stable: Yes Pain Control Satisfactory: Yes Nausea and Vomiting Control Satisfactory: Yes Mental Status Recovered: Yes Vital Signs: Last Vital Signs Temp 98.4 F 03/07/21 16:50 Pulse 88 03/07/21 16:50 Resp 13 03/07/21 16:50 BP 135/66 03/07/21 16:50 Pulse Ox 94 L 03/07/21 16:50 - COMMENTS/OBSERVATIONS Free Text/Narrative:: Patient is preparing for discharge. No apparent anesthesia complications noted
== END 2021-03-07 17:10 | disposition home or self-care (01) ==
LOC: JD.ED 07:00 → JD.SDS 13:14
PROVIDERS: ATTEND Surgery
DX: K35.890 Other acute appendicitis without perforation or gangrene (principal); E11.9 Type 2 diabetes mellitus without complications; E78.00 Pure hypercholesterolemia, unspecified; Z20.822 Contact with and (suspected) exposure to COVID-19; Z88.6 Allergy status to analgesic agent; Z91.018 Allergy to other foods
CPT/HCPCS: 36415; 44970; 71045; 74177; 80053; 84484; 85025; 87635; 93005; 96365; 96375; 96376; 99285; J0330; J0694; J1170; J1885; J2250; J2370; J2405; J2704; J3010; J3490; J7120; Q9963; Q9967; 00840; 93010; 99140; 99284; U0002

== ENCOUNTER 2021-03-11 13:44 | Emergency (ER) | payer MEDICAID ==
--- NOTE | 2021-03-11 14:10 | EDM.PDOC ---
ED HPI GENERAL MEDICAL PROBLEM - General Chief Complaint: Gastrointestinal Problem Stated Complaint: VOMITING/SYNCOPE Time Seen by Provider: 03/11/21 14:09 Source of Information: Reports: Patient History Limitations: Reports: No Limitations - History of Present Illness INITIAL COMMENTS - FREE TEXT/NARRATIVE: 40-year-old male presents to the emergency department for evaluation of diffuse lower abdominal pain particularly pain in the urinary bladder that seems to worsen with voiding. It then slowly improves once he has completed voiding. He has not noted any gross hematuria. Patient presented to the ED with right lower quadrant abdominal pain on March 07 and was diagnosed with acute appendicitis. He had his appendix removed by Dr. Bach on-call surgeon. He was discharged home the same day. Patient states since getting home he has been able to take small quantities of fluids and food. He is having about 10 loose bowel movements a day. Usually is constipated. He denies any pelvic pain with defecation. Pain seems to be in the right side of his pelvis on the bladder which is made worse by voiding. He has diaphoresis and is not sure he is ever ran a fever. He is taking a fair amount of Motrin and pain medication. Patient can walk at a slow pace but not near his normal. Coughing will make the pain worse as well. Onset: Gradual Onset Date: 03/08/21 (Appreciated right lower quadrant abdominal pain and pain in the distribution of his bladder made worse by voiding day after surgery.) Duration: Day(s):, Getting Worse Location: Reports: Abdomen (Right lower quadrant abdominal pain with bladder pain made worse by voiding.) Quality: Reports: Stabbing (Bladder pain is sharp and stabbing and intense. States it almost enough to knock him out.) Severity: Severe Improves with: Reports: Other (Abdominal pain pelvic pain seems to be somewhat better after voiding.) Worsens with: Reports: Other (Having to void.) Context: Reports: Other (4 days post laparoscopic abdominal surgery for removal of his appendix.). Denies: Activity, Exercise, Lifting, Sick Contact, Trauma Associated Symptoms: Reports: Cough, Diaphoresis, Loss of Appetite, Malaise, Nausea/Vomiting (Current bouts of marv diaphoresis.), Weakness. Denies: Confusion, Chest Pain, cough w sputum (Rare.), Fever/Chills, Headaches, Rash ( Pain makes him nauseated but has not vomited.), Seizure, Shortness of Breath, Syncope Treatments NURSERY HAND: Reports: NSAIDS - Related Data Allergies Allergy/AdvReac Type Severity Reaction Status Date / Time morphine Allergy Hives Verified 03/07/21 07:14 wheat Allergy Diarrhea Verified 03/07/21 07:14 simvastatin AdvReac Muscle Verified 03/07/21 09:48 Aches Home Meds: Home Meds Testosterone Cypionate [Depo-Testosterone] 1 dose IM Q7D 04/14/20 [History] Colestipol [Colestipol HCl] 1 gm PO DAILY 03/07/21 [History] Docusate Sodium [Colace] 100 mg PO Q12H 15 Days #30 capsule 03/07/21 [Rx] Glimepiride 4 mg PO BID 03/07/21 [History] Hydrocodone/Acetaminophen [HYDROcodone-Acetaminophen 5-325 MG] 1 each PO Q6H PRN 3 Days #12 tab 03/07/21 [Rx] Rosuvastatin [Crestor] 10 mg PO DAILY 03/07/21 [History] Dulaglutide [Trulicity] 0 mg SQ WEEKLY 03/11/21 [History] oxyCODONE HCl/Acetaminophen [Percocet 5-325 mg Tablet] 1 - 2 each PO Q4H PRN #20 tablet 03/11/21 [Rx] Past Medical History Cardiovascular History: Reports: High Cholesterol Other Cardiovascular History: January 11, 2016 had tachycardia that caused scarring on the heart. Respiratory History: Reports: None Gastrointestinal History: Reports: Inflammatory Bowel Disease Other Gastrointestinal History: RLQ pain, diarrhea, gerd. Chronic diarrhea since having his gallbladder removed. Also failed to have celiac's disease. Follows a wheat free diet. Genitourinary History: Reports: Other (See Below) Other Genitourinary History: hypogonadism, testicular cancer TIP CUTTER History: Reports: None Neurological History: Reports: None Psychiatric History: Reports: None Endocrine/Metabolic History: Reports: Diabetes, Type II (Starting insulin therapy as it would compromise his [employer] license. Type 2 diabetes x10 years controlled with orals up until last 3 to 4 months when he is required Trulicity and Tradjenta samples. 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 Testosterone deficiency) Hematologic History: Reports: None Immunologic History: Reports: None Oncologic (Cancer) History: Reports: Other (See Below) Other Oncologic History: testicular Dermatologic History: Reports: None - Infectious Disease History Infectious Disease History: Reports: None - Past Surgical History Head Surgeries/Procedures: Reports: None HEENT Surgical History: Reports: LASIK, Tonsillectomy Cardiovascular Surgical History: Reports: None Respiratory Surgical History: Reports: None GI Surgical History: Reports: Cholecystectomy, Colonoscopy, EGD, Hernia, Inguinal Other Male Surgeries/Procedures: Removal of bilateral epididimis in 2001, 2004 due to testicular cancer. Endocrine Surgical History: Reports: None Neurological Surgical History: Reports: None Musculoskeletal Surgical History: Reports: Arthroscopic Knee Other Musculoskeletal Surgeries/Procedures:: bilateral knee surgeries, 6 screws to right knee Dermatological Surgical History: Reports: None Social & Family History - Caffeine Use Caffeine Use: Reports: None - Living Situation & Occupation Living situation: Reports: Occupation: Employed (Self-employed driving a semitruck for living.) ED ROS GENERAL - Review of Systems Review Of Systems: See Below Constitutional: Reports: Chills, Malaise, Fatigue, Decreased Appetite. Denies: Fever, Weakness, Weight Loss HEENT: Reports: No Symptoms Respiratory: Reports: No Symptoms Cardiovascular: Reports: No Symptoms Endocrine: Reports: Fatigue, Other (Blood sugar this morning was 90. He is type II diabetic for 10 years.) GI/Abdominal: Reports: Diarrhea (Is having up to 10 loose stools per day since having appendectomy carried out 4 days ago.). Denies: Hematochezia ( No hematochezia.), Melena, Nausea, Vomiting, Other : Reports: Other (Patient is having lower abdominal pain with pain in his bladder that is made worse by initiating voiding. It then will ease up to some degree after finishing voiding. No history of renal stones. He has not noticed any gross hematuria.) Musculoskeletal: Reports: Neck Pain, Shoulder Pain, Back Pain Skin: Reports: No Symptoms Neurological: Reports: No Symptoms Psychiatric: Reports: No Symptoms Hematologic/Lymphatic: Reports: No Symptoms Immunologic: Reports: No Symptoms ED EXAM, GI/ABD - Physical Exam Exam: See Below Exam Limited By: No Limitations General Appearance: Alert, WD/WN, No Apparent Distress, Other (Temperature is 36.6 degrees. Heart rate 71 is sinus with O2 sats of 96% room air. Respiratory to 16 BP 148/82.) Eyes: Bilateral: Normal Appearance (No blepharal pallor or scleral icterus.) Throat/Mouth: Other Head: Atraumatic, Normocephalic Neck: Normal Inspection, Supple, Non-Tender, Full Range of Motion. No: Lymphadenopathy (L), Lymphadenopathy (R) Respiratory/Chest: No Respiratory Distress, Lungs Clear, Normal Breath Sounds, No Accessory Muscle Use Cardiovascular: Normal Peripheral Pulses, Regular Rate, Rhythm, No Edema, No Gallop, No Murmur, No Rub GI/Abdominal Exam: Normal Bowel Sounds, Soft, Non-Tender, No Organomegaly, No Mass, Pelvis Stable, Other (Patient has appropriate amount of postoperative bruising inferior to his umbilicus and over his stab wounds for laparoscopic surgery. His abdomen is tender to touch but there is no rebound tenderness or peritoneal signs.) (Male) Exam: Circumcised, Other (Urethral meatus appears normal.). No: Scrotal Swelling, Scrotum Tenderness (L), Scrotum Tenderness (R) Back Exam: Normal Inspection, Full Range of Motion. No: CVA Tenderness (L), CVA Tenderness (R) Extremities: Normal Inspection, Normal Range of Motion, Non-Tender, No Pedal Edema Neurological: Alert, Oriented, CN II-XII Intact, Normal Cognition Psychiatric: Normal Affect, Normal Mood Skin Exam: Warm, Dry, Intact, Normal Color, No Rash, Other (Ecchymoses at paul gical sites abdominal wall) Course - Vital Signs Last Recorded V/S: Last Vital Signs Temp 36.6 C 03/11/21 14:04 Pulse 71 03/11/21 14:04 Resp 16 03/11/21 14:04 BP 148/82 H 03/11/21 14:04 Pulse Ox 96 03/11/21 14:04 - Orders/Labs/Meds Orders: Active Orders 24 hr Category Date Time Status C DIFFICILE PCR W/REFLEX [MOLEC] Stat Lab 03/11/21 14:27 Ordered Labs: Laboratory Tests 03/11/21 03/11/21 03/11/21 Range/Units 14:25 14:25 14:25 WBC 8.13 (4.23-9.07) K/mm3 RBC 5.39 (4.63-6.08) M/mm3 Hgb 15.1 D (13.7-17.5) gm/dl Hct 45.3 (40.1-51.0) % MCV 84.0 (79.0-92.2) fl MCH 28.0 (25.7-32.2) pg MCHC 33.3 (32.2-35.5) g/dl RDW Std Deviation 40.4 (35.1-43.9) fL Plt Count 289 (163-337) K/mm3 MPV 9.9 (9.4-12.3) fl Neut % (Auto) 72.1 H (34.0-67.9) % Lymph % (Auto) 15.5 L (21.8-53.1) % [place] % (Auto) 8.5 (5.3-12.2) % Eos % (Auto) 3.0 (0.8-7.0) Baso % (Auto) 0.5 (0.1-1.2) % Neut # (Auto) 5.87 H (1.78-5.38) K/mm3 Lymph # (Auto) 1.26 L (1.32-3.57) K/mm3 [place] # (Auto) 0.69 (0.30-0.82) K/mm3 Eos # (Auto) 0.24 (0.04-0.54) K/mm3 Baso # (Auto) 0.04 (0.01-0.08) K/mm3 Sodium 141 (136-145) mEq/L Potassium 3.8 (3.5-5.1) mEq/L Chloride 106 (98-107) mEq/L Carbon Dioxide 28 (21-32) mEq/L Anion Gap 10.8 (5-15) BUN 14 (7-18) mg/dL Creatinine 1.1 (0.7-1.3) mg/dL Est Cr Clr Drug Dosing 92.17 mL/min Estimated GFR (MDRD) > 60 (>60) mL/min BUN/Creatinine Ratio 12.7 L (14-18) Glucose 173 H (70-99) mg/dL Hemoglobin A1c 6.6 H ( - 5.6) % Calcium 7.8 L (8.5-10.1) mg/dL Magnesium 1.9 (1.8-2.4) mg/dL Total Bilirubin 0.2 (0.2-1.0) mg/dL AST 16 (15-37) U/L ALT 23 (16-63) U/L Alkaline Phosphatase 44 L (46-116) U/L C-Reactive Protein 1.2 H* (<1.0) mg/dL Total Protein 6.9 (6.4-8.2) g/dl Albumin 3.0 L (3.4-5.0) g/dl Globulin 3.9 gm/dL Albumin/Globulin Ratio 0.8 L (1-2) Urine Color (Yellow) Urine Appearance (Clear) Urine pH (5.0-8.0) Ur Specific [place] (1.005-1.030) Urine Protein (Negative) Urine Glucose (UA) (Negative) Urine Ketones (Negative) Urine Occult Blood (Negative) Urine Nitrite (Negative) Urine Bilirubin (Negative) Urine Urobilinogen (0.2-1.0) Ur Leukocyte Esterase (Negative) Urine RBC (0-5) /hpf Urine WBC (0-5) /hpf Ur Squamous Epith Cells (0-5) /hpf Urine Bacteria (FEW) /hpf Urine Mucus (FEW) /hpf 03/11/21 Range/Units 15:35 WBC (4.23-9.07) K/mm3 RBC (4.63-6.08) M/mm3 Hgb (13.7-17.5) gm/dl Hct (40.1-51.0) % MCV (79.0-92.2) fl MCH (25.7-32.2) pg MCHC (32.2-35.5) g/dl RDW Std Deviation (35.1-43.9) fL Plt Count (163-337) K/mm3 MPV (9.4-12.3) fl Neut % (Auto) (34.0-67.9) % Lymph % (Auto) (21.8-53.1) % [place] % (Auto) (5.3-12.2) % Eos % (Auto) (0.8-7.0) Baso % (Auto) (0.1-1.2) % Neut # (Auto) (1.78-5.38) K/mm3 Lymph # (Auto) (1.32-3.57) K/mm3 [place] # (Auto) (0.30-0.82) K/mm3 Eos # (Auto) (0.04-0.54) K/mm3 Baso # (Auto) (0.01-0.08) K/mm3 Sodium (136-145) mEq/L Potassium (3.5-5.1) mEq/L Chloride (98-107) mEq/L Carbon Dioxide (21-32) mEq/L Anion Gap (5-15) BUN (7-18) mg/dL Creatinine (0.7-1.3) mg/dL Est Cr Clr Drug Dosing mL/min Estimated GFR (MDRD) (>60) mL/min BUN/Creatinine Ratio (14-18) Glucose (70-99) mg/dL Hemoglobin A1c ( - 5.6) % Calcium (8.5-10.1) mg/dL Magnesium (1.8-2.4) mg/dL Total Bilirubin (0.2-1.0) mg/dL AST (15-37) U/L ALT (16-63) U/L Alkaline Phosphatase (46-116) U/L C-Reactive Protein (<1.0) mg/dL Total Protein (6.4-8.2) g/dl Albumin (3.4-5.0) g/dl Globulin gm/dL Albumin/Globulin Ratio (1-2) Urine Color Yellow (Yellow) Urine Appearance Clear (Clear) Urine pH 7.0 (5.0-8.0) Ur Specific [place] 1.020 (1.005-1.030) Urine Protein Negative (Negative) Urine Glucose (UA) Trace H (Negative) Urine Ketones Negative (Negative) Urine Occult Blood Negative (Negative) Urine Nitrite Negative (Negative) Urine Bilirubin Negative (Negative) Urine Urobilinogen 0.2 (0.2-1.0) Ur Leukocyte Esterase Negative (Negative) Urine RBC 0-5 (0-5) /hpf Urine WBC 0-5 (0-5) /hpf Ur Squamous Epith Cells Not seen (0-5) /hpf Urine Bacteria Occasional (FEW) /hpf Urine Mucus Not seen (FEW) /hpf Meds: Medications Discontinued Medications Generic Name Dose Route Start Last Admin Trade Name Freq PRN Reason Stop Dose Admin Sodium Chloride 1,000 mls @ 500 mls/hr 03/11/21 15:15 Normal Saline IV ASDIRECTED CHAYO Iopamidol 100 ml 03/11/21 14:40 03/11/21 15:10 Iopamidol 612 Mg/Ml 100 Ml Bottle IVPUSH 03/11/21 14:41 100 ml ONETIME ONE Administration Sodium Chloride 10 ml 03/11/21 14:40 03/11/21 15:10 Sodium Chloride 0.9% 10 Ml Syringe FLUSH 10 ml ONETIME PRN Administration IV FLUSH - Radiology Interpretation Free Text/Narrative:: 40-year-old male presents to the ED for evaluation of gradually worsening lower abdominal pain pelvic pain since having his appendix removed laparoscopically on March 07 by . He appreciated development of right lower quadrant pelvic pain a after surgery which is perhaps increased slightly in intensity. He has severe pain with initiation of voiding which is made somewhat better by completion of voiding. His surgical wounds look okay. He is afebrile. He has appropriate amount of postsurgical bruising in his laparoscopic stab wounds and inferior to his umbilicus. No guarding elicited or peritoneal signs on exam. Plan: CT of the abdomen to be completed with IV contrast only. Concern for possible C. difficile enteritis exists since he is having 10 loose bowel meds a day and is tends to be constipated. If still this past in the ED will be collected for C. difficile. Routine labs to be collected including a glycosylated protein. Patient is a type II diabetic x10 years. Urinalysis of course. - Re-Assessments/Exams Free Text/Narrative Re-Assessment/Exam: 03/11/21 15:20 CT of the abdomen pelvis with IV contrast only has been completed. Liver appears to be within normal limits. Visualized portions of the lower lung andersen are clear without any obvious atelectasis or infiltrate. Stomach is full of food. Patient has had previous cholecystectomy. Pancreas appears normal. Spleen appears normal. Adrenal glands appear normal. Both kidneys appear to be within normal limits without any obstruction of the ureters. There is some increased stool or formed stool within the transverse colon. There are no significant dilated loops of small bowel. No obvious diverticulitis. Urinary bladder appears to be full with thin wall. Evidence of surgical procedure at the cecum. There is no pericecal inflammation or abs cess. Similarly nothing identified on the dome of the urinary bladder to account for his current pain syndrome. Will await formal reading by the radiologist. 03/11/21 15:51 radiology over read is now available on the CT abdomen and pelvis with IV contrast. Small amount of free air is seen beneath the hemidiaphragm on the right side secondary to recent laparoscopic appendectomy. Visualized larry g bases show nothing acute. Liver contains no focal abnormality. Surgical clips are noted from prior cholecystectomy. Spleen size is normal. Adrenal glands show no nodules. Pancreas is within normal limits. Kidneys show symmetric contrast enhancement. Current studies shows a small calcification within the right kidney measuring about 2 mm which is felt to be with a small renal stone. Delayed images shows contrast within the distal ureters and within the urinary bladder. Abdominal aorta shows no aneurysm. No retroperitoneal adenopathy is seen. Surgical material is seen from prior appendectomy. No pelvic mass or adenopathy is seen. No free fluid or fluid collections are seen. No inflammatory changes seen. Bone window settings were reviewed which show mild degenerative change within the spine. No acute osseous abnormalities appreciated. 03/11/21 15:54 White count is normal at 8.13. Differential shows 72% neutrophils on the auto differential. Hemoglobin is 15.1 with hematocrit of 45.3. Platelet count 289,000. Sodium is 141 with potassium 3.8. Chloride 106 with a bicarb of 28. Anion gap is 10.8. BUN is 14 with creatinine 1.1 and a GFR greater than 60. Glucose is elevated at 173. Patient is a type II diabetic. Hemoglobin A1c is 6.6. Calcium is 7.8. Magnesium is 1.9. Liver function is normal C-reactive protein is 1.2. Total protein 6.9 with an albumin fraction slightly low at 3.0. Urinalysis reveals a trace of glucose leukocyte Estrace is negative. Micro is pending. 03/11/21 16:05 patient has voided post CT exam. He did try and collect a stool sample in the hat but the toilet automatically flushed and sucked the hat into the toilet losing the stool sample. I discussed the findings of his labs and CT scan not shutting any obvious light on why he is having problems voiding or pain in the lower abdominal wall but I think it is probably blood between the layers of his abdominal wall causing current pain syndrome. 03/11/21 16:39 The micro in the urine is completely normal as well. I discussed the findings with the patient and his . I cannot find any etiology or reason for his bladder to be painful other than possibly injuring the ligament that traverses from the bladder to the umbilicus and atrophies or becomes part of the abdominal wall after . I will send the patient home on Percocet tablets to be used 1 or 2 tablets every 4-6 hours as necessary since he is taking 800 mg of Motrin with 1 [place] tablet the last 3 days. In regards to the diarrhea by advised we will send him home with stool sample containers for C. difficile. Advised him to wait 48 hours to see if it improves. If it does not improve any still having 10 or 12 loose bowel most a day he is to collect a sample and bring it into the lab at the hospital for evaluation. Problem is that [place] away from [place]. His follow-up appointment with is otherwise next March 19. He will keep this appointment. Departure - Departure Time of Disposition: 16:55 Disposition: Home, Self-Care 01 Condition: Fair Clinical Impression: Abdominal pain in male, Postoperative abdominal pain Diarrhea Qualifiers: Diarrhea type: unspecified type Qualified Code(s): R19.7 - Diarrhea, unspecified - Discharge Information *PRESCRIPTION DRUG MONITORING PROGRAM REVIEWED*: Not Applicable *COPY OF PRESCRIPTION DRUG MONITORING REPORT IN PATIENT ANNMARIE: Not Applicable Prescriptions: oxyCODONE HCl/Acetaminophen [Percocet 5-325 mg Tablet] 1 - 2 each PO Q4H PRN #20 tablet PRN Reason: pain relief. Instructions: Abdominal Pain, Adult, [id number], Diarrhea, Adult, [id number] Referrals: PCP,None [Primary Care Provider] - Forms: ED Department Discharge Additional Instructions: Evaluation in the emergency room today in regards to persistent lower abdominal pain particularly affecting the urinary bladder with pain with initiation of voiding since having her appendix removed laparoscopically on March 07. No associated fever or chills. Abdominal wound show appropriate amount of bruising after surgery. Repeat CT scan of the abdomen was performed with IV contrast only. He does not reveal any inflammation around the colon at the site of appendectomy. It shows a normal urinary bladder and kidneys and ureters. I suspect the pain is secondary to irritation of the ligament that travels from the umbilicus to the urinary bladder that turns into a ligament after where the umbilical cord was attached. This will therefore gradually improve over the next 5 to 7 days. In regards to the loose stools I have some concerns that this may have been induced by the initial dose of antibiotic given to you prior to appendix removal. Ideally we would have liked a stool collected to rule out something called C. difficile infection but 1 did not become available in the ED. I will send you home with a container to collect a sample but I would adopt a [id number] approach over the next 48 hours. If the stools get better then you can do not need to bring a sample in. However if you have C. difficile you will not get better and you will continue to have anywhere between 10 and 18 loose stools per day. Usually it is easily cleared up with antibiotics. You would need to bring a sample into the hospital however for diagnosis. I have written a prescription for pain medicine Percocet 5/325 mg strength to be taken 1 or 2 every 4-6 hours necessary for pain relief until this abdominal pain eases up and improves. My notes will be sent to the surgeon who performed your appendectomy. Otherwise you do need to keep an appointment to follow-up with him on next week as planned. Of course return to the ED at any time if the pain worsens or you develop any fever chills nausea or vomiting. Sepsis Event Note (ED) - Focused Exam Vital Signs: Vital Signs Temp Pulse Resp BP Pulse Ox 03/11/21 14:04 36.6 C 71 16 148/82 H 96 - My Orders Last 24 Hours: My Active Orders 03/11/21 14:27 C DIFFICILE PCR W/REFLEX [MOLEC] Stat - Assessment/Plan Last 24 Hours: My Active Orders 03/11/21 14:27 C DIFFICILE PCR W/REFLEX [MOLEC] Stat
[2021-03-11] MEDS ORDERED: Iopamidol 612 MG/ML 100 ML Bottle IVPUSH ONE (14:40)
[2021-03-11] MEDS ORDERED: Sodium Chloride 0.9% 10 ML Syringe FLUSH PRN (14:40)
[2021-03-11 14:50] LABS: HEMOGLOBIN A1C 6.6 %
[2021-03-11] MEDS ORDERED: Sodium Chloride 0.9% 1,000 ML IV SCH (15:15)
--- NOTE | 2021-03-11 15:32 | CT ---
CT abdomen and pelvis Technique: Multiple axial sections were obtained from above the dome of the diaphragm inferiorly through the pubic symphysis. Intravenous contrast was utilized. No oral contrast has been given. Delayed images were obtained through the bladder. Reconstructed coronal and sagittal images were obtained. Comparison: Prior CT abdomen and pelvis study of 03/07/21. Findings: Small amount of free air is seen beneath the hemidiaphragm on the right side. Visualized lung bases show nothing acute. Liver contains no focal abnormality. Surgical clips are noted from prior cholecystectomy. Spleen size is normal. Adrenal glands show no nodule. Pancreas is within normal limits. Kidneys show symmetric contrast enhancement. Current study shows a small calcification within the right kidney measuring about 2 mm which is felt compatible with a small renal stone. Delayed images shows contrast within the distal ureters and within the bladder. Abdominal aorta shows no aneurysm. No retroperitoneal adenopathy is seen. Surgical material is seen from prior appendectomy. No pelvic mass or adenopathy is seen. No free fluid or fluid collections are seen. No inflammatory change is seen. Bone window settings were reviewed which show mild degenerative change within the spine. No acute osseous abnormality is appreciated. Impression: 1. Prior appendectomy. 2. Small amount of free air beneath the right hemidiaphragm most likely residual from prior appendectomy. 3. Small nonobstructing stone within the right kidney. 4. Nothing acute is otherwise seen on CT study of the abdomen and pelvis. Diagnostic code #2
== END 2021-03-11 17:23 | disposition home or self-care (01) ==
LOC: JD.ED 13:44
DX: G89.18 Other acute postprocedural pain (principal); R10.9 Unspecified abdominal pain; R19.7 Diarrhea, unspecified; E78.00 Pure hypercholesterolemia, unspecified; E11.9 Type 2 diabetes mellitus without complications; Z79.4 Long term (current) use of insulin; Z79.899 Other long term (current) drug therapy; Z88.5 Allergy status to narcotic agent; Z91.018 Allergy to other foods; Z88.8 Allergy status to other drugs, medicaments and biological substances
CPT/HCPCS: 36415; 74177; 80053; 81001; 83036; 83735; 85025; 86140; 99284; Q9967

== ENCOUNTER 2021-04-13 12:51 | Emergency (ER) | payer MEDICAID | END 2021-04-13 13:40 | disposition left against medical advice (07) | LOC: JD.ED 12:51 | DX: Z53.21 Procedure and treatment not carried out due to patient leaving prior to being seen by health care provider (principal) ==

== ENCOUNTER 2021-04-13 13:54 | Emergency (ER) | payer MEDICAID | END 2021-04-13 14:00 | disposition left against medical advice (07) | LOC: JD.ED 13:54 | DX: Z53.21 Procedure and treatment not carried out due to patient leaving prior to being seen by health care provider (principal) ==

== ENCOUNTER 2021-04-15 06:05 | Emergency (ER) | payer MEDICAID ==
[2021-04-15] MEDS ORDERED: Ondansetron 4 MG/2 ML SDV IVPUSH ONE (07:29)
[2021-04-15] MEDS ORDERED: Sodium Chloride 0.9% 10 ML Syringe FLUSH PRN (07:29)
[2021-04-15] MEDS ORDERED: Sodium Chloride 0.9% 1,000 ML IV SCH (07:30)
[2021-04-15] MEDS ORDERED: Ondansetron 4 MG/2 ML SDV ONE (07:35)
[2021-04-15] MEDS ORDERED: Sodium Chloride 0.9% 1,000 ML ONE (07:36)
[2021-04-15] MEDS ORDERED: Lactated Ringers 1,000 ML IV ONE (08:30)
--- NOTE | 2021-04-15 08:31 | EDM.PDOC ---
ED HPI GENERAL MEDICAL PROBLEM - General Chief Complaint: Respiratory Problem Stated Complaint: COVID+/COUGHING UP BLOOD Time Seen by Provider: 04/15/21 07:15 Source of Information: Reports: Patient, RN Notes Reviewed - History of Present Illness INITIAL COMMENTS - FREE TEXT/NARRATIVE: 40 yr old male with onset of fever, chills, diarrhea about 9 or 10 days ago. He has had cough as well, some but not severe shortness of breath. The vomiting and diarrhea has worsening over the past 4 days, continues to have intermitent fever along with Pena and myalgias. He tested pos. for covid at one fo the clinic s 2 days ago. He has not been vaccinated. He does not smoke. Type 2 diabetic. - Related Data Allergies Allergy/AdvReac Type Severity Reaction Status Date / Time morphine Allergy Severe Hives Verified 04/15/21 06:21 wheat Allergy Severe Diarrhea Verified 04/15/21 06:21 simvastatin AdvReac Severe Muscle Verified 04/15/21 06:21 Aches Home Meds: Home Meds Testosterone Cypionate [Depo-Testosterone] 1 dose IM Q7D 04/14/20 [History] Colestipol [Colestipol HCl] 1 gm PO DAILY 03/07/21 [History] Glimepiride 4 mg PO BID 03/07/21 [History] Rosuvastatin [Crestor] 10 mg PO DAILY 03/07/21 [History] Dulaglutide [Trulicity] 0 mg SQ WEEKLY 03/11/21 [History] Hydrocodone/Acetaminophen [HYDROcodone-Acetaminophen 5-325 MG] 1 each PO Q6HR PRN #14 tab 04/15/21 [Rx] Omeprazole 0 mg PO DAILY 04/15/21 [History] Past Medical History Cardiovascular History: Reports: High Cholesterol Other Cardiovascular History: January 11, 2016 had tachycardia that caused scarring on the heart. Respiratory History: Reports: None Gastrointestinal History: Reports: Inflammatory Bowel Disease Other Gastrointestinal History: RLQ pain, diarrhea, gerd. Chronic diarrhea since having his gallbladder removed. Also failed to have celiac's disease. Follows a wheat free diet. Genitourinary History: Reports: Other (See Below) Other Genitourinary History: hypogonadism, testicular cancer C++ PROFESSOR History: Reports: None Neurological History: Reports: None Psychiatric History: Reports: None Endocrine/Metabolic History: Reports: Diabetes, Type II Hematologic History: Reports: None Immunologic History: Reports: None Oncologic (Cancer) History: Reports: Other (See Below) Other Oncologic History: testicular Dermatologic History: Reports: None - Infectious Disease History Infectious Disease History: Reports: Novel Coronavirus - Past Surgical History HEENT Surgical History: Reports: LASIK, Tonsillectomy GI Surgical History: Reports: Appendectomy, Cholecystectomy, Colonoscopy, EGD, Hernia, Inguinal Other Male Surgeries/Procedures: Removal of bilateral epididimis in 2001, 2004 due to testicular cancer. Musculoskeletal Surgical History: Reports: Arthroscopic Knee Other Musculoskeletal Surgeries/Procedures:: bilateral knee surgeries, 6 screws to right knee Social & Family History - Tobacco Use Tobacco Use Status *Q: Never Tobacco User - Caffeine Use Caffeine Use: Reports: Coffee - Recreational Drug Use Recreational Drug Use: No - Living Situation & Occupation Living situation: Reports: Occupation: Employed (Self-employed driving a semitruck for living.) ED ROS GENERAL - Review of Systems Review Of Systems: See Below Constitutional: Reports: Fever, Chills HEENT: Reports: Rhinitis. Denies: Throat Pain Respiratory: Reports: Shortness of Breath, Cough GI/Abdominal: Reports: Diarrhea, Nausea, Vomiting Musculoskeletal: Reports: Other (generalized achiness) Neurological: Reports: Headache ED EXAM, GENERAL - Physical Exam Exam: See Below General Appearance: Alert, Mild Distress Eye Exam: Bilateral Eye: PERRL Throat/Mouth: Normal Inspection Head: Atraumatic Neck: Supple Respiratory/Chest: No Respiratory Distress, Lungs Clear Cardiovascular: Tachycardia Extremities: Normal Inspection Neurological: Alert, Oriented, No Motor/Sensory Deficits Skin Exam: Warm, Dry, Normal Color Course - Vital Signs Last Recorded V/S: Last Vital Signs Temp 97.7 F 04/15/21 06:17 Pulse 123 H 04/15/21 06:17 Resp 20 04/15/21 06:17 BP 144/106 H 04/15/21 06:17 Pulse Ox 94 L 04/15/21 06:17 - Orders/Labs/Meds Orders: Active Orders 24 hr Category Date Time Status Peripheral IV Care [RC] . DIRECTED Care 04/15/21 07:30 Active Sodium Chloride 0.9% [Normal Saline] 1,000 ml Med 04/15/21 07:30 Active IV ONETIME Sodium Chloride 0.9% [Saline Flush] Med 04/15/21 07:29 Active 10 ml FLUSH ASDIRECTED PRN Peripheral IV Insertion Adult [OM.PC] Stat Oth 04/15/21 07:29 Ordered Medication Orders Sodium Chloride (Normal Saline) 1,000 mls @ 999 mls/hr IV ONETIME CHAYO Last Admin: 04/15/21 07:38 Dose: 999 mls/hr Documented by: MERVAT Sodium Chloride (Sodium Chloride 0.9% 10 Ml Syringe) 10 ml FLUSH ASDIRECTED PRN PRN Reason: Keep Vein Open Last Admin: 04/15/21 07:38 Dose: 10 ml Documented by: MERVAT Labs: Laboratory Tests 04/15/21 04/15/21 Range/Units 06:25 06:25 WBC 7.50 (4.23-9.07) K/mm3 RBC 5.80 (4.63-6.08) M/mm3 Hgb 15.7 (13.7-17.5) gm/dl Hct 47.1 (40.1-51.0) % MCV 81.2 (79.0-92.2) fl MCH 27.1 (25.7-32.2) pg MCHC 33.3 (32.2-35.5) g/dl RDW Std Deviation 40.9 (35.1-43.9) fL Plt Count 194 D (163-337) K/mm3 MPV 10.3 (9.4-12.3) fl Neut % (Auto) 83.7 H (34.0-67.9) % Lymph % (Auto) 7.7 L (21.8-53.1) % [place] % (Auto) 8.3 (5.3-12.2) % Eos % (Auto) 0.1 L (0.8-7.0) Baso % (Auto) 0.1 (0.1-1.2) % Neut # (Auto) 6.27 H (1.78-5.38) K/mm3 Lymph # (Auto) 0.58 L (1.32-3.57) K/mm3 [place] # (Auto) 0.62 (0.30-0.82) K/mm3 Eos # (Auto) 0.01 L (0.04-0.54) K/mm3 Baso # (Auto) 0.01 (0.01-0.08) K/mm3 Manual Slide Review Normal smear Sodium 134 L (136-145) mEq/L Potassium 3.5 (3.5-5.1) mEq/L Chloride 97 L (98-107) mEq/L Carbon Dioxide 26 (21-32) mEq/L Anion Gap 14.5 (5-15) BUN 18 (7-18) mg/dL Creatinine 1.2 (0.7-1.3) mg/dL Est Cr Clr Drug Dosing 84.49 mL/min Estimated GFR (MDRD) > 60 (>60) mL/min BUN/Creatinine Ratio 15.0 (14-18) Glucose 192 H (70-99) mg/dL Calcium 8.0 L (8.5-10.1) mg/dL Total Bilirubin 0.4 (0.2-1.0) mg/dL AST 30 (15-37) U/L ALT 28 (16-63) U/L Alkaline Phosphatase 52 (46-116) U/L Total Protein 7.5 (6.4-8.2) g/dl Albumin 3.2 L (3.4-5.0) g/dl Globulin 4.3 gm/dL Albumin/Globulin Ratio 0.7 L (1-2) Meds: Medications Generic Name Dose Route Start Last Admin Trade Name Frenichelle PRN Reason Stop Dose Admin Sodium Chloride 1,000 mls @ 999 mls/hr 04/15/21 07:30 04/15/21 07:38 Normal Saline IV 999 mls/hr ONETIME CHAYO Administration Sodium Chloride 10 ml 04/15/21 07:29 04/15/21 07:38 Sodium Chloride 0.9% 10 Ml Syringe FLUSH 10 ml ASDIRECTED PRN Administration Keep Vein Open Discontinued Medications Generic Name Dose Route Start Last Admin Trade Name Freq PRN Reason Stop Dose Admin Sodium Chloride Confirm 04/15/21 07:36 04/15/21 08:41 Normal Saline Administered 04/15/21 07:37 Not Given Dose 1,000 mls @ as directed .ROUTE .STK-MED ONE Lactated Ringer's 1,000 mls @ 999 mls/hr 04/15/21 08:30 04/15/21 08:41 Ringers, Lactated IV 04/15/21 09:30 999 mls/hr .BOLUS ONE Administration Ondansetron HCl 4 mg 04/15/21 07:29 04/15/21 07:38 Ondansetron 4 Mg/2 Ml Sdv IVPUSH 04/15/21 07:30 4 mg ONETIME ONE Administration Ondansetron HCl Confirm 04/15/21 07:35 04/15/21 08:41 Ondansetron 4 Mg/2 Ml Sdv Administered 04/15/21 07:36 Not Given Dose 4 mg .ROUTE .STK-MED ONE - Re-Assessments/Exams Free Text/Narrative Re-Assessment/Exam: 04/15/21 10:09 WBC nl, chem. relatively good. CXR does not show obvious infiltrate. Radiol ogist is calling question of slight infiltrate or atelectasis R base and L mid lung. Sats have been 94 to 99 % room air. Have given 2 liters NS IV and also zofran 4 mg IV. Pt feeling better at time of discharge. Discharge instr. as documented. Departure - Departure Time of Disposition: 08:27 Disposition: Home, Self-Care 01 Condition: Fair Clinical Impression: COVID-19 virus infection, Vomiting Diarrhea Qualifiers: Diarrhea type: unspecified type Qualified Code(s): R19.7 - Diarrhea, unspecified - Discharge Information Prescriptions: Hydrocodone/Acetaminophen [HYDROcodone-Acetaminophen 5-325 MG] 1 each PO Q6HR PRN #14 tab PRN Reason: Pain Instructions: 10 Things You Can Do to Manage Your COVID-19 Symptoms at Home - CDC (02/06/2021), Nausea and Vomiting, Adult Referrals: PCP,None [Primary Care Provider] - Forms: ED Department Discharge Additional Instructions: Rest, continue to isolate as best you can for the next 4 days. Clear liquids and very bland diet as tolerated. Continue zofran and cough medication as need ed. Tylenol q 6 to 8 hr for fever and/or discomfort as needed or hydrocodone if needed for severe discomfort. Prescription has been sent to [facility]. Follow up clinic as needed. Return to ED as needed if symptoms worsening in any way, especially for severe difficulty breathing as discussed. Sepsis Event Note (ED) - Evaluation Sepsis Screening Result: No Definite Risk - Focused Exam Vital Signs: Vital Signs Temp Pulse Resp BP Pulse Ox 04/15/21 06:17 97.7 F 123 H 20 144/106 H 94 L - My Orders Last 24 Hours: My Active Orders 04/15/21 07:29 Sodium Chloride 0.9% [Saline Flush] 10 ml FLUSH ASDIRECTED PRN Peripheral IV Insertion Adult [OM.PC] Stat 04/15/21 07:30 Peripheral IV Care [RC] . DIRECTED Sodium Chloride 0.9% [Normal Saline] 1,000 ml IV ONETIME - Assessment/Plan Last 24 Hours: My Active Orders 04/15/21 07:29 Sodium Chloride 0.9% [Saline Flush] 10 ml FLUSH ASDIRECTED PRN Peripheral IV Insertion Adult [OM.PC] Stat 04/15/21 07:30 Peripheral IV Care [RC] . DIRECTED Sodium Chloride 0.9% [Normal Saline] 1,000 ml IV ONETIME
--- NOTE | 2021-04-15 08:56 | CR ---
Chest: Portable view of the chest was obtained. Comparison: Prior chest x-ray on 03/07/21. Heart size and mediastinum are within normal limits. Slight density within the right lung base is seen. Mild increased density within the left midlung is also noted. Bony structures show nothing acute. Impression: 1. Slight increased density within the right lung base and within the left midlung. Findings are compatible with either atelectasis or small areas of pneumonia if patient has correlating symptoms. 2. Portable chest x-ray is otherwise unremarkable. Diagnostic code #3
== END 2021-04-15 10:17 | disposition home or self-care (01) ==
LOC: JD.ED 06:05
DX: U07.1 COVID-19 (principal); R11.10 Vomiting, unspecified; E78.00 Pure hypercholesterolemia, unspecified; E11.9 Type 2 diabetes mellitus without complications; Z88.5 Allergy status to narcotic agent; Z91.018 Allergy to other foods; Z88.8 Allergy status to other drugs, medicaments and biological substances; Z79.84 Long term (current) use of oral hypoglycemic drugs; Z79.899 Other long term (current) drug therapy
CPT/HCPCS: 36415; 71045; 80053; 85025; 96374; 99284; J2405; J7030; J7120